=== PATIENT | male | born 1970 | race Caucasian/White ===

== ENCOUNTER 2020-06-18 10:55 | Emergency (ER) | payer OTHER, SELFPAY ==
[2020-06-18 11:10] VITALS: BP 160/108; PULSE 131; RESP 21; TEMP 37.3; O2SAT 96; BMI 29.8
--- NOTE | 2020-06-18 11:27 | HMH.EDUTC ---
[facility] [place] Clinical Impression: Encounter for laboratory testing for COVID-19 virus, Exposure to COVID-19 virus Disposition: Home, Self-Care Condition on Discharge: Good Instructions: DI for COVID-19 (Suspected or Confirmed ), Coronavirus Disease 2019, Preventing the Spread of Coronavirus Discharge Instructions Additional Instructions: *Monitor Temp, Over the counter Motrin or Tylenol as directed/as needed Tylenol every 4 hours and Motrin every 6 hours (as long as your family doctor has told you that you can take it) for fever or pain. and straight to ER if unable to lower temp less than 101.0 after medication given *Warm salt water gargles may help to soothe the throat *Warm fluids like tea with honey may help to soothe the throat *Sleep elevated *Humidifier/Vaporizer Follow up IMMEDIATELY for new or worsening symptoms or no Noticeable improvement over the next 48-72 hours. 911 for difficulty breathing or swallowing You were tested for today for COVID19 your test result should be back in the next 24-48 hours, you may call to the [facility] to see if your test results are back in the next 48 hours [phone] [facility] hours are 9am-9pm You was given a handout with instructions for Self Quarantine and Self isolation for while you wait on test results and what to do if they are positive If you are positive the Health Dept will be contacting you also Make sure to follow up with your Family Doctor for further treatment and evaluation of you Blood pressure and HR Referrals: PCP,No [Primary Care Provider] - As needed Forms: Work/School Release Time of Disposition: 11:32 Medical Decision Making - Eliazar Inquiry Pt receiving controlled substance: No Eliazar was queried for this patient: No Vital Signs: 06/18/20 11:10 Temperature 99.1 F Temperature Source Oral Pulse Rate [Right Brachial] 131 H Respiratory Rate 21 Blood Pressure [Right Arm] 160/108 H Blood Pressure Mean [Right Arm] 125 Blood Pressure Source [Right Arm] Automatic Cuff Blood Pressure Position [Right Arm] Sitting 02 Sat by Pulse Oximetry 96 Orders (Tests/Meds): ORDERS Category Date Time Status Covid-19 Nasal PCR Sendout P&C Stat Lab 06/18/20 10:57 Ordered Medical Decision Narrative: Discussed BP and elevated HR with patient States that he is a little nervous about the test and not sure if that may have caused it but declined transfer to the ED Patient recommended to follow up with the PCP if negative COVID for further treatment and evaluation [facility] [place] - General Stated complaint: covid test Time Seen by Provider: 06/18/20 11:27 Mode of Arrival: Ambulatory Source of Information: Patient Limitations: No Limitations Description of Symptoms (Recalled from Triage Doc. by RN): COVID TEST D/T EXPOSURE. C/O FEVER X 5 DAYS AND FATIGUE HEENT Symptoms (Recalled from RN notes): No Resp Symptoms (Recalled from RN notes): No Skin Symptoms (Recalled from RN notes): No MS Symptoms (Recalled from RN notes): No Functional Status (Recalled from RN notes): WNL - History of Present Illness Provider Complaint: Patient state that he wanted to get tested for COVID State that he has had fever on and off for 5 days, bodyaches and fatigue States that his and several co-workers recently tested positive and he was having symptoms too so he came in - Related Data Allergies Allergy/AdvReac Type Severity Reaction Status Date / Time No Known Allergies Allergy Verified 06/18/20 11:21 - Worker's Comp Is this a Worker's Comp case?: No [facility] History - Hepatitis A Screen Drug use history?: No High risk sexual behaviors?: No History of sexually transmitted infection?: No Currently employed?: No Childcare worker?: No Do you have indoor plumbing?: Yes Do you have electricity?: Yes Attestation statement:: This patient has been screened for Hepatitis A risk factors. I have reviewed the patient's past medical history: Yes - Social History Alcohol Intak
[2020-06-18 11:33] VITALS: BP 160/98; PULSE 110
[2020-06-18 11:43] VITALS: BP 160/98; PULSE 110; RESP 21; TEMP 37.3; O2SAT 96
[2020-06-19 08:52] LABS: Covid-19 Nasal PCR Sendout P&C POSITIVE
--- NOTE | 2020-06-19 09:34 | PC.NURSE ---
patient notified of positive covid results
== END 2020-06-18 11:45 | disposition home or self-care (01) ==
PROVIDERS: Emergency Provider Nurse Practitioner
DX: U07.1 COVID-19 (principal)
CPT/HCPCS: 99202; G0463; U0004

== ENCOUNTER 2020-06-22 13:51 | Inpatient (IN) | payer BC, SELFPAY ==
[2020-06-22] VITALS (9 sets, daily range): BP systolic 137–154; BP diastolic 82–100; PULSE 98–122; RESP 18–28; TEMP 36.6–37.2; O2SAT 83–95; BMI 29.8; BMI 29.7
--- NOTE | 2020-06-22 14:15 | XR_ITS ---
PROCEDURE: XR CHEST 2V CLINICAL HISTORY: SOA Positive Covid19 COMPARISON: No exams were available for comparison FINDINGS: The cardiomediastinal silhouette and pulmonary vascularity are within normal limits. There is diffuse bilateral alveolar opacification consistent with diffuse bilateral pneumonia in both upper and lower lobes. No obvious effusions. No acute bony abnormalities. IMPRESSION: Extensive bilateral pneumonia Dictated by: Isma Dela Cruz MD 06/22/2020 14:45 Isma Dela Cruz MD in [place] 06/22/2020 14:45
--- NOTE | 2020-06-22 14:21 | PC.NURSE ---
pt to rad
--- NOTE | 2020-06-22 14:26 | PC.NURSE ---
resp at bedside for ABG
--- NOTE | 2020-06-22 14:30 | HMH.EDGENADL ---
ED Disposition Clinical Impression: Acute respiratory failure due to COVID-19 Disposition: Admitted As Inpatient Condition on Discharge: Critical Referrals: PCP,No [Primary Care Provider] - - Critical Care Critical Care Time: Yes Attestation: On 06/22/20, the high probability of a clinically significant, sudden or life threatening deterioration of the following system(s) required my full and direct attention, intervention and personal management. The time I documented below is in addition to time spent performing reported procedures but includes the following listed in this critical care notation. Total Critical Care Time: 30 Vital system(s) involved:: Circulatory Failure, Metabolic Failure, Respiratory Failure My critical care processes included: Assessment & monitoring of V/S, Initial and Re-exams, Data Review/Interpretation, Coordinating Care, Medication Orders and management, Documentation Medical Decision Making - Medical Records Medical records reviewed: Yes: I reviewed the patient's medical records. - Eliazar Inquiry Pt receiving controlled substance: No Vital Signs: 06/22/20 13:52 Temperature 98.8 F Temperature Source Oral Pulse Rate [Right] 120 H Respiratory Rate 28 H Blood Pressure [Right Arm] 150/100 H Blood Pressure Mean [Right Arm] 116 Blood Pressure Source [Right Arm] Automatic Cuff Blood Pressure Position [Right Arm] Sitting 02 Sat by Pulse Oximetry 83 L Oxygen Delivery Method Room Air - Lab Data Lab Results 06/22/20 14:10: Specimen Source Right radial, O2 % 5l nc, ABG pH 7.43, ABG pCO2 31.9 L, ABG pO2 51.2 L, ABG HCO3 20.7 L, ABG Total CO2 21.7 L, ABG O2 Saturation 89 L, ABG Base Excess -3.6 L, Isma Test Acceptable 06/22/20 14:39: WBC 10.0, RBC 5.16, Hgb 15.8, Hct 45.9, MCV 89.0, MCH 30.7, MCHC 34.5, RDW 13.4, Plt Count 189, MPV 8.4, Neut % (Auto) 87.9 H, Lymph % (Auto) 10.0, [place] % (Auto) 1.9, Eos % (Auto) 0.0 L, Baso % (Auto) 0.3, Neut # (Auto) 8.8 H, Lymph # (Auto) 1.0, [place] # (Auto) 0.2, Eos # (Auto) 0.0, Baso # (Auto) 0.0 Result diagrams: 06/22/20 14:39 Orders (Tests/Meds): ED MEDICATIONS Generic Name Dose Route Start Last Admin Trade Name Angela PRN Reason Stop Dose Admin Sodium Chloride 1,000 mls @ 999 mls/hr 06/22/20 14:15 06/22/20 14:48 Sod Chlor 0.9% 1000ml Bag IV 06/22/20 15:15 999 mls/hr .Q1H1M SREEDHAR Administration Discontinued Medications Generic Name Dose Route Start Last Admin Trade Name Angela PRN Reason Stop Dose Admin Dexamethasone Sodium Phosphate 10 mg 06/22/20 14:09 06/22/20 14:53 Dexamethasone 4mg/Ml 1ml Vial IV 06/22/20 14:10 10 mg ONCE ONE Administration Iopamidol 70 ml 06/22/20 14:52 06/22/20 14:53 Iopamidol-370 (76%);100ml Bottle IV 06/22/20 14:53 70 ml ONCE ONE Administration Ketorolac Tromethamine 30 mg 06/22/20 14:09 Ketorolac 30mg/Ml Vial IM 06/22/20 14:10 ONCE ONE Sodium Chloride 50 ml 06/22/20 14:52 06/22/20 14:53 0.9 % Sodium Chloride 50 Ml Vial IV 06/22/20 14:53 50 ml ONCE ONE Administration Sodium Chloride 10 ml 06/22/20 14:52 06/22/20 14:53 Sodium Chloride 0.9% 10ml Syr (Rad Only) IV 06/22/20 14:53 10 ml ONCE ONE Administration ORDERS Category Date Time Status CTA Chest [CT angio chest] Stat Cat Scan 06/22/20 14:39 Taken Complete Blood Count Auto Diff Stat Lab 06/22/20 14:39 Results Comprehensive Metabolic Panel Stat Lab 06/22/20 14:39 Received Lactic Acid Stat Lab 06/22/20 14:39 Received PTT [Activated Partial Thrombo Time] Stat Lab 06/22/20 14:39 Ordered Prothrombin Time INR Stat Lab 06/22/20 14:39 Ordered Trop I [Troponin I] Stat Lab 06/22/20 14:39 Received Troponin I Q3H Lab 06/22/20 17:15 Ordered Troponin I Q3H Lab 06/22/20 20:15 Ordered Blood Culture Stat Micro 01/18/21 14:39 Received - Radiology Data #1 Image(s): Chest Image Reviewed: Yes I reviewed the patient's radiology results, Yes I reviewed the patient's radiology image, Ye
--- NOTE | 2020-06-22 14:35 | PC.NURSE ---
supervisor hospitality house notified of pt needing to go to covid unit quickly r/t pt will be need to be placed on vapotherm per ER r/t not maintaining sats on 4L per NC
--- NOTE | 2020-06-22 14:39 | CT_ITS ---
PROCEDURE: CT ANGIO CHEST CLINCIAL INDICATION: SOA Shortness of air, Covid19 pneumonia COMPARISON: No exams were available for comparison TECHNIQUE: IV Contrast: 70ML Isovue 370 Axial images obtained with sagittal and coronal reformats. All CT scans at the facility use one or more dose reduction, viz: automated exposure control, ma/kV adjustment per patient size (including targeted exams where dose is matched to indication, i.e. head), or iterative reconstruction technique. FINDINGS: HEART AND MEDIASTINAL STRUCTURES: No evidence of pulmonary embolus, aortic aneurysm, or aortic dissection.. There are enlarged mediastinal and bilateral hilar lymph nodes. LUNGS AND PLEURAL SPACES: Multifocal diffuse bilateral ground-glass infiltrates noted with some areas of consolidation in the lower lobes. These findings are consistent with Covid19 pneumonia. Nodular lesions may be obscured. No effusions. BONY STRUCTURES: Mild degenerative changes thoracic spine UPPER ABDOMEN: Fatty liver ADDITIONAL FINDINGS: No other significant abnormalities. IMPRESSION: 1. No evidence of pulmonary embolus, aortic aneurysm, or aortic dissection. 2. Multifocal diffuse areas of ground-glass attenuation in both upper and lower lobes with consolidation consistent with Covid19 pneumonia Dictated by: Isma Dela Cruz MD 06/22/2020 15:19 Isma Dela Cruz MD in [place] 06/22/2020 15:19
--- NOTE | 2020-06-22 14:40 | PC.NURSE ---
waiting parks recreation coordinator back from Dr. Carson
--- NOTE | 2020-06-22 14:47 | PC.NURSE ---
Pt to radiology. Pt increased to 5lpm per NC. PT will be going up to the unit quickly due to sats not being able to get above 90%. Plan is to place pt on vapotherm. Pt and updated on POC. Agreeable at this time
[2020-06-22 14:50] LABS: ABG Base Excess -3.6 mmol/L (-2.4-2.3); ABG HCO3 20.7 mmhg (22.0-26.0); ABG Oxygen Saturation 89 % (90-100); ABG PCO2 31.9 mmhg (35.0-45.0); ABG PH 7.43 mmol/L (7.35-7.45); ABG PO2 51.2 mmhg (80-100); ABG TCO2 21.7 mmhg (23-27); Oxygen 5l nc %
[2020-06-22 14:51] LABS: Allen's Test Acceptable; Source Right Radial
[2020-06-22 14:52] LABS: Basophils % 0.3 % (0.1-2.0); Hematocrit 45.9 % (42.0-52.0); Hemoglobin 15.8 g/dL (14.1-18.0); Mean Corpuscular HGB Conc 34.5 g/dL (31.8-35.4); Mean Corpuscular Hemoglobin 30.7 pg (27.0-31.2); Mean Platelet Volume 8.4 fl (7.4-10.4); Monocytes # 0.2 K/mm3 (0.1-1.0); Monocytes % 1.9 % (1.7-9.3); Neutrophils # 8.8 K/mm3 (1.8-7.8); Neutrophils % 87.9 % (37.0-80.0); Platelet Count 189 K/mm3 (142-424); Red Blood Count 5.16 M/mm3 (4.60-6.20); Red Cell Distribution Width 13.4 % (11.5-17.5)
[2020-06-22 14:55] LABS: MANUAL DIFFERENTIAL MANUAL DIFFERENTIAL (MANUAL DIFF)
--- NOTE | 2020-06-22 14:56 | PC.NURSE ---
Dr Coker speaking with Dr Carson
[2020-06-22 14:58] LABS: Chloride 103 mmol/L (98-107); Sodium 139 mmol/L (136-145)
[2020-06-22 14:59] LABS: Potassium 4.6 mmoL/L (3.5-5.1)
[2020-06-22 15:01] LABS: Alanine Aminotransferase 140 U/L (12-78); Alkaline Phosphatase 101 U/L (38-126); Anion Gap 15.6 mEq/L (5-15); Aspartate Amino Transferase 145 U/L (17-59); Bilirubin,Total 0.5 mg/dl (0.2-1.3); Blood Urea Nitrogen 19 mg/dl (9-20); Carbon Dioxide 25 mmol/L (22.0-30.0); Creatinine Clearance Estimated 119 mL/min (50-200); Estimated Glomerular Filt Rate 59 ml/min (>60); GFR (African American) 72 ML/MIN (>60); Lactic Acid 1.2 mmol/L (0.7-2.1)
[2020-06-22 15:02] LABS: Albumin Level 4.5 g/dl (3.5-5.0); Calcium 9.6 mg/dl (8.4-10.2); Globulin 4.5 g/dL (1.3-3.2); Glucose 179 mg/dl (74-100)
[2020-06-22 15:04] LABS: Lymphocytes % 11 % (10-50); Monocytes % 6 % (2-9); Neutrophils % 82 % (42-76); Platelet Estimate Normal; RBC Morphology Normal; Total Cells Counted 100
[2020-06-22 15:17] LABS: Troponin I < 0.01 ng/ml (0.00-0.034)
--- NOTE | 2020-06-22 15:39 | PC.NURSE ---
PT sats remained in 80's/90's while in ED. V/S on and off due to pt going back and forth to rad and getting labs drawn. Pt remained on 5lpm NC. Decision was made to get pt to the unit so he oculd be placed on vapotherm. Pt returned from CTA and was taken to the unit per TRAM Dennison and report was given to TRAM Delgado
--- NOTE | 2020-06-22 16:03 | HMH.PHAVTE ---
[facility] Pharmacy VTE Monitoring - Patient Demographics Admission date: 06/22/20 Report Date: 06/22/20 Time: 16:03 Allergies/Adverse Reactions: Patient Allergies No Known Allergies Allergy (Verified 06/22/20 14:20) Height: 2.01 m Weight: 120.202 kg Patient Problems: Current Active Problems Acute respiratory failure due to COVID-19 (Acute) - VTE Risk Labs: VTE Related Lab Results Hgb 15.8 g/dL (14.1-18.0) 06/22/20 14:39 Hct 45.9 % (42.0-52.0) 06/22/20 14:39 Plt Count 189 K/mm3 (142-424) 06/22/20 14:39 BUN 19 mg/dl (9-20) 06/22/20 14:39 Creatinine 1.30 mg/dl (0.66-1.25) H 06/22/20 14:39 Estimated Creat Clear 119 mL/min (50-200) 06/22/20 14:39 Clinical Trial Participant: No - Prophylaxis VTE Prophylaxis Ordered?: Yes Types of VTE Prophylaxis: TEDS Knee High, Pharmacological Pharmacologic Type: Enoxaparin
[2020-06-22 16:21] LABS: Activated Partial Thrombo Time 31.9 seconds (23.6-34.0); INR 1.07 (0.9-1.1); Prothrombin Time 11.8 seconds (9.4-11.8)
[2020-06-22 17:52] LABS: Troponin I < 0.01 ng/ml (0.00-0.034)
--- NOTE | 2020-06-22 18:40 | PC.NURSE ---
Patient is resting comfortably in bed. Admitted today at 1530 from ER for covid pneumonia requiring high flow oxygen. Patient is neurologically alert and oriented x 5. Pupils are equal and reactive. Cardiac: Patient has been sinus tach since admission with rates in excess of 110 bmp. No edema noted. Blood pressure has been within normal ranges. Afebrile. Current temperature is 98.8 Pulmonary: Patient given an incentive spirometer and educated on its usage. Has been noted using the IS intermittently without prompting. Remains on vapotherm at 40l, 60%. Sputum sample ordered, patient has a sample cup but has been unable to produce a sample. GI: Patient has active bowel sounds. No n/v/d. Diminished appetite. Patient ate roughly 25% of his dinner and states he has been dealing with a lack of appetite for a few days. : Patient voids per urinal. Has had 600 cc of clear yellow urine since admission. Skin: Clean dry intact. No issues or concerns. Patient was educated on proning himself when in bed. Patient has been laying on side and stomach intermittently. Will continue to monitor.
[2020-06-22 21:27] LABS: Troponin I < 0.01 ng/ml (0.00-0.034)
--- NOTE | 2020-06-22 22:01 | PC.NURSE ---
He continues in contact and airborne precautions. His lung sounds are diminished. He states he does not cough often. He is aware of need for sputum and cup is at the bedside. He is voiding per urinal. Urine is yellow,clear. Large amounts of urine (600mL) at a time. He is A&Ox4. Reports his last BM was on 06/21/20. He turns himself independently in bed and lays prone occasionally. He reports a poor appetite.
[2020-06-23] VITALS (13 sets, daily range): BP systolic 148–160; BP diastolic 84–97; PULSE 80–110; RESP 16–23; TEMP 36.7–36.9; O2SAT 90–96; BMI 33.7
[2020-06-23 06:05] LABS: Alanine Aminotransferase 116 U/L (12-78); Albumin/Globulin Ratio 1.1 (1.1-1.8); Alkaline Phosphatase 93 U/L (38-126); Anion Gap 16.8 mEq/L (5-15); Aspartate Amino Transferase 116 U/L (17-59); Bilirubin,Total 0.4 mg/dl (0.2-1.3); Blood Urea Nitrogen 17 mg/dl (9-20); Calcium 9.3 mg/dl (8.4-10.2); Carbon Dioxide 23 mmol/L (22.0-30.0); Chloride 104 mmol/L (98-107); Creatinine Clearance Estimated 196 mL/min (50-200); Estimated Glomerular Filt Rate 90 ml/min (>60); GFR (African American) 109 ML/MIN (>60); Globulin 3.7 g/dL (1.3-3.2); Glucose 139 mg/dl (74-100); Potassium 4.8 mmoL/L (3.5-5.1); Sodium 139 mmol/L (136-145); Total Protein,Serum 7.7 g/dl (6.3-8.2)
[2020-06-23 06:24] LABS: Basophils % 0.2 % (0.1-2.0); Lymphocytes # 0.7 K/mm3 (0.7-4.5); Lymphocytes % 10.1 % (10-50); Mean Corpuscular HGB Conc 34.8 g/dL (31.8-35.4); Mean Corpuscular Hemoglobin 31.3 pg (27.0-31.2); Mean Platelet Volume 8.6 fl (7.4-10.4); Monocytes # 0.2 K/mm3 (0.1-1.0); Monocytes % 3.4 % (1.7-9.3); Neutrophils # 5.9 K/mm3 (1.8-7.8); Neutrophils % 86.4 % (37.0-80.0); Platelet Count 201 K/mm3 (142-424); Red Blood Count 4.44 M/mm3 (4.60-6.20); Red Cell Distribution Width 13.4 % (11.5-17.5); White Blood Count 6.8 K/mm3 (4.8-10.8)
[2020-06-23 07:02] LABS: MANUAL DIFFERENTIAL MANUAL DIFFERENTIAL (MANUAL DIFF)
[2020-06-23 08:48] LABS: Lymphocytes % 9 % (10-50); Monocytes % 2 % (2-9); Neutrophils % 88 % (42-76); Platelet Estimate Normal; RBC Morphology Normal; Total Cells Counted 100
[2020-06-23 09:42] LABS: Hemoglobin 13.9 g/dL (14.1-18.0)
--- NOTE | 2020-06-23 12:00 | HMH.HP ---
*Admission Date: 06/22/20 *Chief complaint: Shortness of Breath *History of present illness: 49 YOM states he started feeling bad last Monday and with a fever, SOA, cough, weakness. He tested positive for covid in the [facility] on 06/18 and has gotten porgressively worse in the past couple of days. This is a 49-year-old male presented to the emergency department with difficulty breathing. Patient was recently diagnosed with coronavirus a few days ago. Patient denies any medical problems. He states that he has been very rundown. He has had some cough, however nonproductive in nature. He has been taking Tylenol and scheduled, however he still endorses some fevers. The patient woke up today and had some difficulties breathing. Specially with exertion, he felt like he could not catch his breath. He denies any associated chest pain. No hemoptysis. Denies any headache or change in vision. No focal weakness. No abdominal pain or vomiting, no diarrhea (Per Dr. Coker). White blood cell count 10, H&H stable, CBC unremarkable. AST 145, ALT 140 06/22/2020 chest x-ray: FINDINGS: The cardiomediastinal silhouette and pulmonary vascularity are within normal limits. There is diffuse bilateral alveolar opacification consistent with diffuse bilateral pneumonia in both upper and lower lobes. No obvious effusions. No acute bony abnormalities. IMPRESSION: Extensive bilateral pneumonia Dictated by: Jose De Jesus, 06/22/20 Chest CTA: FINDINGS: HEART AND MEDIASTINAL STRUCTURES: No evidence of pulmonary embolus, aortic aneurysm, or aortic dissection.. There are enlarged mediastinal and bilateral hilar lymph nodes. LUNGS AND PLEURAL SPACES: Multifocal diffuse bilateral ground-glass infiltrates noted with some areas of consolidation in the lower lobes. These findings are consistent with Covid19 pneumonia. Nodular lesions may be obscured. No effusions. BONY STRUCTURES: Mild degenerative changes thoracic spine UPPER ABDOMEN: Fatty liver ADDITIONAL FINDINGS: No other significant abnormalities. IMPRESSION: 1. No evidence of pulmonary embolus, aortic aneurysm, or aortic dissection. 2. Multifocal diffuse areas of ground-glass attenuation in both upper and lower lobes with consolidation consistent with Covid19 pneumonia Dictated by: Jose De Jesus, Azithromycin, ceftriaxone, remdesivir, and dexamethasone IV all started in emergency department. Patient resting in bed with eyes closed no apparent distress noted. Awakens to verbal stimuli. Patient reports she is feeling better today than yesterday but still short of breath. Vapotherm at 40 L oxygen saturations 91%. Patient reports he has been up walking in his room and sitting in chair for all meals. [facility] History I have reviewed the patient's past medical history: Yes Medical History: Denies:: Diabetes Mellitus Type 1, Diabetes Mellitus Type 2 *Have you ever received a pneumonia vaccine?: No *Have you received a flu vaccine this season?: No - *Social History Last grade of school completed: Advanced degree Smoking Status: Never smoker Alcohol Intake: never *Occupational Status:: employed Housing: house Household Members: spouse *Travel in the last 8 weeks: None Family Hx:: No significant family history Review of Systems - Review of Systems Review of systems:: pertinent systems reviewed and negative unless documented below - Constitutional Denies anorexia, Denies body ache(s) - Eyes Denies blind spots, Denies double vision - ENT Denies abnormal hearing, Denies difficulty swallowing - *Cardiovascular Reports shortness of breath, Denies chest pain, Denies leg swelling - *Respiratory Reports cough, Reports shortness of breath, Denies change in phlegm color - *Gastrointestinal Denies abdominal pain, Denies bloating - *Genitourinary Denies difficulty urinating, Denies decreased urination - *Musculoskeletal Denies abnormal walking, Denies muscle cramps - Integumentary/Breasts
--- NOTE | 2020-06-23 15:30 | HMH.PULMCON ---
*Admission Date: 06/22/20 *Reason for consult:: Acute hypoxic respiratory failure, COVID-19 pneumonia *History of present illness: Mr. Messina is a 49-year-old male never smoker, no prior respiratory complaint presented to the hospital with worsening fatigue and respiratory failure needing high flow nasal cannula oxygen supplementation and pulmonary was called for further management. Patient previously complained productive cough however he denies any productive phlegm at this point. No sob worsens with exertion and relieved with taking rest. Patient admits that his symptom significantly improved after coming to the hospital. [facility] History Medical History: Denies:: Diabetes Mellitus Type 1, Diabetes Mellitus Type 2 *Have you ever received a pneumonia vaccine?: No *Have you received a flu vaccine this season?: No - *Social History Last grade of school completed: Advanced degree Smoking Status: Never smoker Alcohol Intake: never Alcohol Intake Frequency:: other Substance Use Type: unknown *Occupational Status:: employed Housing: house Household Members: spouse *Travel in the last 8 weeks: None Family Hx:: Other ROS - Cons Reports body ache(s), Reports chills - Card Reports shortness of breath, Reports shortness of breath with activity - Resp Respiratory: Reports chest congestion, Reports cough, Reports non-productive cough, Reports dyspnea on exertion, Denies coughing up blood, Denies pain on inspiration, Denies cough with sputum production Meds Home Medications Medication Instructions Recorded Confirmed Type No Known Home Medications 06/22/20 06/22/20 History Allergies Allergy/AdvReac Type Severity Reaction Status Date / Time No Known Allergies Allergy Verified 06/22/20 18:33 Exam - Constitutional Constitutional:: no acute distress, comfortable - HENMT Exam HENMT: atraumatic - Eye Exam Eyes:: normal appearance both eyes and related structures - Neck Exam Neck:: normal visual inspection - Respiratory Exam Comments: Patient high flow nasal cannula 35 L 95%. Does not appear to be in respiratory distress. Bilateral coarse breath sounds. - Cardiovascular Exam Cardiac:: S1, S2 - GI Exam GI:: soft - Skin Exam Skin: warm, no rash - Neurological Exam Neurological: alert, awake, normal cognition - Extremities Exam Extremities: no cyanosis, no clubbing, no edema - Psychiatric Exam Psychiatric: anxious Internal Medicine - CN: Reslt - Labs CBC & Chem 7: 06/23/20 04:50 06/23/20 04:50 Labs: Short CBC 06/23/20 Range/Units 04:50 WBC 6.8 D (4.8-10.8) K/mm3 Hgb 13.9 L D (14.1-18.0) g/dL Hct 40.0 L (42.0-52.0) % Plt Count 201 (142-424) K/mm3 BMP 06/23/20 04:50 Sodium 139 Potassium 4.8 Chloride 104 Carbon Dioxide 23 BUN 17 Creatinine 0.90 D Glucose 139 H D Calcium 9.3 Cardiac Enzymes 06/22/20 06/22/20 Range/Units 17:10 20:55 Troponin I < 0.01 < 0.01 (0.00-0.034) ng/ml Liver Function 06/23/20 Range/Units 04:50 Total Bilirubin 0.4 (0.2-1.3) mg/dl AST 116 H (17-59) U/L ALT 116 H (12-78) U/L Alkaline Phosphatase 93 (38-126) U/L Albumin 4.0 D (3.5-5.0) g/dl - ABG Interpretation ABG results: 06/22/20 14:10 ABG pH 7.43 ABG pCO2 31.9 L ABG pO2 51.2 L ABG HCO3 20.7 L ABG Total CO2 21.7 L ABG O2 Saturation 89 L ABG Base Excess -3.6 L Assessment and Plan (1) Acute respiratory failure due to COVID-19 Status: Acute Category: Medical Code(s): U07.1 - COVID-19; J96.00 - Acute respiratory failure, unspecified whether with hypoxia or hypercapnia - Assessment and plan all Dx Assessment and Plan for all problems:: #Acute hypoxic respiratory failure: #COVID-19 pneumonia: 49-year-old no prior respiratory complaints presented with worsening respiratory failure and found to be COVID-19 positive and was admitted for further management. Patient has a CTA performed that wa
--- NOTE | 2020-06-23 19:29 | PC.NURSE ---
PATIENT IS A&O X4, LUNGS ARE DIMINISHED, PULSES EQUAL. PATIENT SLEPT ON STOMACH DURING NAPS. PATIENT WAS ANXIOUS AND HAD A FEELING OF DOOM. THIS RN ENCOURAGED PATIENT AND ANSWERED ALL QUESTIONS, PER PATIENT, HE FEELS A LOT BETTER. PATIENT ATE ALL MEALS AND TOLERATED WELL. PATIENT DID SOME ACTIVITY OF GETTING UP TO CHAIR, SITTING ON SIDE OF BED AND TOLERATED WELL. NO NEW CONCERNS AT THIS TIME.
[2020-06-24] VITALS (15 sets, daily range): BP systolic 141–162; BP diastolic 81–93; PULSE 65–110; RESP 18–26; TEMP 36.4–37.2; O2SAT 89–98; BMI 33.6
--- NOTE | 2020-06-24 06:56 | PC.NURSE ---
PT IS RESTING IN BED. PT STATES HE FEELS MUCH BETTER. HAS BEEN USING IS FREQUENTLY WHILE AWAKE. O2 SATURATION HAS MAINTAINED 92-98% ON VAPOTHERM AT 40L AND 75% FIO2. PT SLEPT IN PRONE POSITION T/O THE NIGHT. LUNG SOUNDS DIMINISHED WITH FINE CRACKLES IN THE RT BASE. ABDOMEN SOFT NON TENDER WITH ACTIVE BOWEL SOUNDS. PT HAD A LARGE BM EARLIER IN THE SHIFT. WILL CONTINUE TO MONITOR.
[2020-06-24 07:52] LABS: Basophils % 0.2 % (0.1-2.0); Hematocrit 39.4 % (42.0-52.0); Hemoglobin 13.8 g/dL (14.1-18.0); Lymphocytes # 1.3 K/mm3 (0.7-4.5); Lymphocytes % 13.5 % (10-50); Mean Corpuscular HGB Conc 34.9 g/dL (31.8-35.4); Mean Corpuscular Hemoglobin 31.5 pg (27.0-31.2); Mean Corpuscular Volume 90.3 fl (80-94); Mean Platelet Volume 8.9 fl (7.4-10.4); Monocytes # 0.4 K/mm3 (0.1-1.0); Monocytes % 4.5 % (1.7-9.3); Neutrophils # 7.6 K/mm3 (1.8-7.8); Neutrophils % 81.8 % (37.0-80.0); Platelet Count 253 K/mm3 (142-424); Red Blood Count 4.36 M/mm3 (4.60-6.20); Red Cell Distribution Width 13.8 % (11.5-17.5); White Blood Count 9.3 K/mm3 (4.8-10.8)
[2020-06-24 07:54] LABS: Alanine Aminotransferase 101 U/L (12-78); Albumin Level 3.8 g/dl (3.5-5.0); Albumin/Globulin Ratio 1.1 (1.1-1.8); Alkaline Phosphatase 79 U/L (38-126); Anion Gap 14.7 mEq/L (5-15); Aspartate Amino Transferase 97 U/L (17-59); Bilirubin,Total 0.4 mg/dl (0.2-1.3); Blood Urea Nitrogen 21 mg/dl (9-20); Calcium 9.2 mg/dl (8.4-10.2); Carbon Dioxide 25 mmol/L (22.0-30.0); Chloride 107 mmol/L (98-107); Creatinine Clearance Estimated 176 mL/min (50-200); Estimated Glomerular Filt Rate 80 ml/min (>60); GFR (African American) 97 ML/MIN (>60); Globulin 3.6 g/dL (1.3-3.2); Glucose 115 mg/dl (74-100); Potassium 4.7 mmoL/L (3.5-5.1); Sodium 142 mmol/L (136-145); Total Protein,Serum 7.4 g/dl (6.3-8.2)
--- NOTE | 2020-06-24 09:42 | P.PN_ITS ---
Internal Medicine - PN: Subj *Date: 06/24/20 *Time: 08:42 Interval history: pt siting up in bed states he feels some better. Exam Vital signs and Labs for Last 24 Hours: Temp Pulse Resp BP Pulse Ox 98.3 F 73 19 145/86 H 89 L 06/24/20 08:00 06/24/20 08:00 06/24/20 08:00 06/24/20 08:00 06/24/20 08:13 Laboratory Results - last 24 hr 06/23/20 04:50: Hgb 13.9 L D 06/24/20 05:55: Sodium 142, Potassium 4.7, Chloride 107, Carbon Dioxide 25, Anion Gap 14.7, BUN 21 H, Creatinine 1.00, Estimated Creat Clear 176, Estimated GFR 80, Est GFR ( Amer) 97, Glucose 115 H, Calcium 9.2, Total Bilirubin 0.4, AST 97 H, ALT 101 H, Alkaline Phosphatase 79, Total Protein 7.4, Albumin 3.8, Globulin 3.6 H, Albumin/Globulin Ratio 1.1 06/24/20 05:55: WBC 9.3 D, RBC 4.36 L, Hgb 13.8 L, Hct 39.4 L, MCV 90.3, MCH 31.5 H, MCHC 34.9, RDW 13.8, Plt Count 253 D, MPV 8.9, Neut % (Auto) 81.8 H, Lymph % (Auto) 13.5, [place] % (Auto) 4.5, Eos % (Auto) 0.0 L, Baso % (Auto) 0.2, Neut # (Auto) 7.6, Lymph # (Auto) 1.3, [place] # (Auto) 0.4, Eos # (Auto) 0.0, Baso # (Auto) 0.0 I & O for Last 24 hours: Intake & Output 06/21/20 06/22/20 06/23/20 06/24/20 11:59 11:59 11:59 11:59 Intake Total 2633 / 2633 2380 / 2380 Output Total 2870 / 2870 3350 / 3350 Balance -237 / -237 -970 / -970 Weight 300 lb 8 oz - Constitutional no acute distress - *Routine HEENT Exam Head: Present: normocephalic Eye: Present: PERRL ENT: Present: mucous membranes moist - *Routine Neck Exam Present: supple. Absent: lymphadenopathy - *Routine Respiratory Exam Present: rhonchi, wheezes - *Routine Cardiovascular Exam Present: RRR - *Routine Abdominal Exam Present: soft, normoactive bowel sounds. Absent: tenderness - *Routine Extremities Exam Present: normal capillary refill. Absent: cyanosis, clubbing, edema - *Routine Skin Exam Present: warm. Absent: rash - *Routine Neurological Exam Present: alert, oriented X3 - Routine Psychiatric Exam Present: normal affect Assessment and Plan (1) Acute respiratory failure due to COVID-19 Status: Acute Category: Medical Code(s): U07.1 - COVID-19; J96.00 - Acute respiratory failure, unspecified whether with hypoxia or hypercapnia (2) Class 1 obesity with body mass index (BMI) of 33.0 to 33.9 in adult Status: Acute Category: Medical Code(s): E66.9 - Obesity, unspecified; Z68.33 - Body mass index [BMI] 33.0-33.9, adult - Assessment and plan all Dx Assessment and Plan for all problems:: rounded with dr tubbs all orders per dr arley bynum
--- NOTE | 2020-06-24 16:41 | HMH.PULMPN ---
Internal Medicine - PN: Subj *Date: 06/24/20 *Time: 16:41 Interval history: No acute respiratory events overnight, patient respiratory status remained stable on high flow nasal cannula at 75% FiO2. Exam - Constitutional Constitutional:: no acute distress, comfortable - Neck Exam Neck:: normal visual inspection - Respiratory Exam Respiratory:: able to speak in complete sentences, crackles - Cardiovascular Exam Cardiac:: S1, S2 - Neurological Exam Neurological: alert, awake, normal cognition - Extremities Exam Extremities: no cyanosis, no clubbing, no edema - Psychiatric Exam Psychiatric: normal affect Assessment and Plan (1) Acute respiratory failure due to COVID-19 Status: Acute Category: Medical Code(s): U07.1 - COVID-19; J96.00 - Acute respiratory failure, unspecified whether with hypoxia or hypercapnia (2) Class 1 obesity with body mass index (BMI) of 33.0 to 33.9 in adult Status: Acute Category: Medical Code(s): E66.9 - Obesity, unspecified; Z68.33 - Body mass index [BMI] 33.0-33.9, adult - Assessment and plan all Dx Assessment and Plan for all problems:: #Acute hypoxic respiratory failure: #COVID-19 pneumonia: 49-year-old no prior respiratory complaints presented with worsening respiratory failure and found to be COVID-19 positive and was admitted for further management. Patient has a CTA performed that was negative for PE however showed bilateral groundglass opacities. Afebrile, no evidence of leukocytosis. Creatinine stable at 0.90. ABG from admission reviewed, showed hypoxic respiratory failure. Patient on admission was initiated on ceftriaxone azithromycin along with remdesivir and dexamethasone. Interval update: Patient respiratory status remained stable since yesterday needing high flow nasal cannula at 75%. Patient saturating 88 to 92% but however desaturating with exertion. Able to talk in complete sentences. Appears to be in mild respiratory distress. Auscultation bilateral coarse breath sounds unchanged from yesterday. Patient does not appear to be volume overloaded. Plan: - Continue oxygen supplementation via high flow nasal cannula with saturation goal of 88% to 92%, wean oxygen as tolerated - Continue ceftriaxone azithromycin for possible community-acquired pneumonia - Continue remdesivir and dexamethasone - DuoNebs every 6 hours as needed Total critical care time spent on this patient is 30 minutes managing acute hypoxic respiratory failure needing high flow nasal cannula. This time spent include reviewing test results including interpreting chest x-rays, labs and arterial blood gas formulating plan of care, discussing the plan of care with the team and the nursing staff. #Thank you for involving pulmonary in this patient care. We will continue to follow.
--- NOTE | 2020-06-24 19:24 | PC.NURSE ---
No acute changes noted this shift, patient has been up to chair this shift, using IS, has ate 100% of meals this shift, vapotherm settings decreased to 40L/70%, patient tolerated well, no s/s of distress noted, vss, will continue to monitor.
[2020-06-25] VITALS (12 sets, daily range): BP systolic 135–151; BP diastolic 83–96; PULSE 65–114; RESP 18–20; TEMP 36.6–36.8; O2SAT 90–99; BMI 33.3
--- NOTE | 2020-06-25 01:17 | PC.NURSE ---
PT IS RESTING IN BED IN PRONE POSITION. PT HAS BEE USING HIS INCENTIVE SPIROMETER FREQUENTLY WHILE AWAKE. O2 SATURATION HAS MAINTAINED 95-99% ON VAPOTHERM 40 L AND 65% FIO2. PT TOLERATED GIVING HIMSELF A BATH AT THE BEGINNING OF THE SHIFT. LUNG SOUNDS DIMINISHED. ABDOMEN SOFT/NON TENDER WITH ACTIVE BOWEL SOUNDS. VSS. WILL CONTINUE TO MONITOR
[2020-06-25 07:06] LABS: Basophils % 0.1 % (0.1-2.0); Hematocrit 38.3 % (42.0-52.0); Hemoglobin 13.4 g/dL (14.1-18.0); Lymphocytes # 1.2 K/mm3 (0.7-4.5); Lymphocytes % 14.2 % (10-50); Mean Corpuscular Hemoglobin 31.8 pg (27.0-31.2); Mean Corpuscular Volume 90.9 fl (80-94); Monocytes # 0.5 K/mm3 (0.1-1.0); Monocytes % 5.6 % (1.7-9.3); Neutrophils # 6.5 K/mm3 (1.8-7.8); Neutrophils % 80.2 % (37.0-80.0); Platelet Count 292 K/mm3 (142-424); Red Blood Count 4.22 M/mm3 (4.60-6.20); Red Cell Distribution Width 13.2 % (11.5-17.5); White Blood Count 8.1 K/mm3 (4.8-10.8)
[2020-06-25 07:14] LABS: Alanine Aminotransferase 223 U/L (12-78); Albumin Level 3.9 g/dl (3.5-5.0); Albumin/Globulin Ratio 1.1 (1.1-1.8); Alkaline Phosphatase 97 U/L (38-126); Anion Gap 13.8 mEq/L (5-15); Aspartate Amino Transferase 176 U/L (17-59); Bilirubin,Total 0.6 mg/dl (0.2-1.3); Blood Urea Nitrogen 20 mg/dl (9-20); Calcium 9.2 mg/dl (8.4-10.2); Carbon Dioxide 27 mmol/L (22.0-30.0); Chloride 106 mmol/L (98-107); Creatinine Clearance Estimated 193 mL/min (50-200); Estimated Glomerular Filt Rate 90 ml/min (>60); GFR (African American) 109 ML/MIN (>60); Globulin 3.4 g/dL (1.3-3.2); Glucose 125 mg/dl (74-100); Potassium 4.8 mmoL/L (3.5-5.1); Sodium 142 mmol/L (136-145); Total Protein,Serum 7.3 g/dl (6.3-8.2)
--- NOTE | 2020-06-25 09:09 | HMH.PULMPN ---
Internal Medicine - PN: Subj *Date: 06/25/20 *Time: 11:19 Interval history: Patient respiratory status improved from yesterday, wean to nasal cannula this morning, however saturations between 82 to 90% Exam - Constitutional Constitutional:: no acute distress, cooperative - HENMT Exam HENMT: normocephalic, atraumatic - Neck Exam Neck:: normal visual inspection - Respiratory Exam Respiratory:: able to speak in complete sentences, no respiratory distress, crackles - Cardiovascular Exam Cardiac:: S1, S2 - Neurological Exam Neurological: alert, awake, normal cognition - Extremities Exam Extremities: no cyanosis, no clubbing, edema - Psychiatric Exam Psychiatric: normal affect Assessment and Plan (1) Acute respiratory failure due to COVID-19 Status: Acute Category: Medical Code(s): U07.1 - COVID-19; J96.00 - Acute respiratory failure, unspecified whether with hypoxia or hypercapnia (2) Class 1 obesity with body mass index (BMI) of 33.0 to 33.9 in adult Status: Acute Category: Medical Code(s): E66.9 - Obesity, unspecified; Z68.33 - Body mass index [BMI] 33.0-33.9, adult - Assessment and plan all Dx Assessment and Plan for all problems:: #Acute hypoxic respiratory failure: #COVID-19 pneumonia: 49-year-old no prior respiratory complaints presented with worsening respiratory failure and found to be COVID-19 positive and was admitted for further management. Patient has a CTA performed that was negative for PE however showed bilateral groundglass opacities. ABG from admission reviewed, showed hypoxic respiratory failure. Patient on admission was initiated on ceftriaxone azithromycin along with remdesivir and dexamethasone. Interval update: Patient respiratory status improved from yesterday. Oxygen supplementation weaned to 6 L nasal cannula however patient saturations between 82 to 90%. We will diuresis patient today and follow his oxygen status with a saturation goal of 88 to 92%. Blood cultures no growth 48 hours. Sputum staining rare gram-positive cocci in pairs and chains, will continue to monitor Afebrile. Hemodynamically stable. Renal function stable. Plan: - Lasix 40 IV once - Continue oxygen supplementation with saturation goal of 88% to 92%, wean oxygen as tolerated - Continue ceftriaxone azithromycin for possible community-acquired pneumonia - Continue remdesivir and dexamethasone - DuoNebs every 6 hours as needed #Thank you for involving pulmonary in this patient care. We will continue to follow.
--- NOTE | 2020-06-25 12:35 | XR_ITS ---
PROCEDURE: XR CHEST PORTABLE CLINICAL HISTORY: covid pneumonia Shortness of air COMPARISON: CR XR CHEST 2V from 06/22/[address] ANGIO CHEST from 06/22/2020 FINDINGS: The cardiomediastinal silhouette and pulmonary vascularity are within normal limits. There is diffuse bilateral pneumonia which is worse in the lower lobes. No evidence of pneumothorax. The pneumonia appears slightly improved in the right upper lobe. No acute bony abnormalities. IMPRESSION: Diffuse bilateral pneumonia with mixed response worsening in the lower lobes and slight improvement in the right upper lobe Dictated by: Isma Dela Cruz MD 06/25/2020 13:16 Isma Dela Cruz MD in [facility] 06/25/2020 13:16
--- NOTE | 2020-06-25 12:40 | P.PN_ITS ---
Internal Medicine - PN: Subj *Date: 06/25/20 *Time: 08:30 Interval history: pt sitting up in chair states hes been up moving around feels better today Exam Vital signs and Labs for Last 24 Hours: Temp Pulse Resp BP Pulse Ox 98.3 F 112 H 20 151/95 H 91 L 06/25/20 12:00 06/25/20 12:00 06/25/20 12:00 06/25/20 12:00 06/25/20 12:00 Laboratory Results - last 24 hr 06/25/20 06:00: Sodium 142, Potassium 4.8, Chloride 106, Carbon Dioxide 27, Anion Gap 13.8, BUN 20, Creatinine 0.90, Estimated Creat Clear 193, Estimated GFR 90, Est GFR ( Amer) 109, Glucose 125 H, Calcium 9.2, Total Bilirubin 0.6, AST 176 H D, ALT 223 H D, Alkaline Phosphatase 97, Total Protein 7.3, Albumin 3.9, Globulin 3.4 H, Albumin/Globulin Ratio 1.1 06/25/20 06:00: WBC 8.1, RBC 4.22 L, Hgb 13.4 L, Hct 38.3 L, MCV 90.9, MCH 31.8 H, MCHC 35.0, RDW 13.2, Plt Count 292, MPV 8.0, Neut % (Auto) 80.2 H, Lymph % (Auto) 14.2, [place] % (Auto) 5.6, Eos % (Auto) 0.0 L, Baso % (Auto) 0.1, Neut # (Auto) 6.5, Lymph # (Auto) 1.2, [place] # (Auto) 0.5, Eos # (Auto) 0.0, Baso # (Auto) 0.0 I & O for Last 24 hours: Intake & Output 06/23/20 06/24/20 06/25/20 06/26/20 11:59 11:59 11:59 11:59 Intake Total 2633 / 2633 2620 / 2620 2622 / 2982 360 / 360 Output Total 2870 / 2870 3350 / 3350 4300 / 4300 750 / 750 Balance -237 / -237 -730 / -730 -1678 / -1318 -390 / -390 Weight 300 lb 8 oz 297 lb Microbiology Reports for the Last 24 Hours: Microbiology 06/24/20 08:43 Sputum - Expectorated Sputum Gram Stain - Final 06/24/20 08:43 Sputum - Expectorated Sputum Sputum Culture - Preliminary 06/22/20 14:39 Blood Blood Culture - Preliminary NO GROWTH AFTER 48 HOURS 06/22/20 14:39 Blood Blood Culture - Preliminary NO GROWTH AFTER 48 HOURS - Constitutional no acute distress - *Routine HEENT Exam Head: Present: normocephalic Eye: Present: PERRL ENT: Present: mucous membranes moist - *Routine Neck Exam Present: supple. Absent: lymphadenopathy - *Routine Respiratory Exam Present: rhonchi, wheezes - *Routine Cardiovascular Exam Present: RRR - *Routine Abdominal Exam Present: soft, normoactive bowel sounds. Absent: tenderness - *Routine Extremities Exam Present: normal capillary refill. Absent: cyanosis, clubbing, edema - *Routine Skin Exam Present: warm. Absent: rash - *Routine Neurological Exam Present: alert, oriented X3 - Routine Psychiatric Exam Present: normal affect Assessment and Plan (1) Acute respiratory failure due to COVID-19 Status: Acute Category: Medical Code(s): U07.1 - COVID-19; J96.00 - Acute respiratory failure, unspecified whether with hypoxia or hypercapnia (2) Class 1 obesity with body mass index (BMI) of 33.0 to 33.9 in adult Status: Acute Category: Medical Code(s): E66.9 - Obesity, unspecified; Z68.33 - Body mass index [BMI] 33.0-33.9, adult - Assessment and plan all Dx Assessment and Plan for all problems:: rounded with dr tubbs all orders per dr tubbs wean verperther attempted to wean to o2 nc and or stats dropped to the 80's placed back on verpertherm
--- NOTE | 2020-06-25 13:17 | PC.NURSE ---
RESPIRATORY CARE NOTE: 1310- PT PLACED BACK ON VAPOTHERM AT THIS TIME. 50%, 30 LPM
--- NOTE | 2020-06-25 16:23 | HMH.ACPN ---
Internal Medicine - PN: Subj *Date: 06/25/20 *Time: 16:23 Exam Vital signs and Labs for Last 24 Hours: Temp Pulse Resp BP Pulse Ox 98.3 F 112 H 20 151/95 H 97 06/25/20 12:00 06/25/20 12:00 06/25/20 12:00 06/25/20 12:00 06/25/20 14:00 Laboratory Results - last 24 hr 06/25/20 06:00: Sodium 142, Potassium 4.8, Chloride 106, Carbon Dioxide 27, Anion Gap 13.8, BUN 20, Creatinine 0.90, Estimated Creat Clear 193, Estimated GFR 90, Est GFR ( Amer) 109, Glucose 125 H, Calcium 9.2, Total Bilirubin 0.6, AST 176 H D, ALT 223 H D, Alkaline Phosphatase 97, Total Protein 7.3, Albumin 3.9, Globulin 3.4 H, Albumin/Globulin Ratio 1.1 06/25/20 06:00: WBC 8.1, RBC 4.22 L, Hgb 13.4 L, Hct 38.3 L, MCV 90.9, MCH 31.8 H, MCHC 35.0, RDW 13.2, Plt Count 292, MPV 8.0, Neut % (Auto) 80.2 H, Lymph % (Auto) 14.2, [place] % (Auto) 5.6, Eos % (Auto) 0.0 L, Baso % (Auto) 0.1, Neut # (Auto) 6.5, Lymph # (Auto) 1.2, [place] # (Auto) 0.5, Eos # (Auto) 0.0, Baso # (Auto) 0.0 I & O for Last 24 hours: Intake & Output 06/22/20 06/23/20 06/24/20 06/25/20 23:59 23:59 23:59 23:59 Intake Total 960 / 970 1913 / 4053 4086 / 4086 1276 / 1276 Output Total 2420 / 2420 1650 / 3050 4200 / 4200 3750 / 3750 Balance -1460 / -1450 263 / 1003 -114 / -114 -2474 / -2474 Weight 120 kg 136.305 kg 136 kg 134.717 kg Microbiology Reports for the Last 24 Hours: Microbiology 06/24/20 08:43 Sputum - Expectorated Sputum Gram Stain - Final 06/24/20 08:43 Sputum - Expectorated Sputum Sputum Culture - Preliminary 06/22/20 14:39 Blood Blood Culture - Preliminary NO GROWTH AFTER 48 HOURS 06/22/20 14:39 Blood Blood Culture - Preliminary NO GROWTH AFTER 48 HOURS Assessment and Plan (1) Acute respiratory failure due to COVID-19 Status: Acute Category: Medical Code(s): U07.1 - COVID-19; J96.00 - Acute respiratory failure, unspecified whether with hypoxia or hypercapnia (2) Class 1 obesity with body mass index (BMI) of 33.0 to 33.9 in adult Status: Acute Category: Medical Code(s): E66.9 - Obesity, unspecified; Z68.33 - Body mass index [BMI] 33.0-33.9, adult The patient's infection will respond to the chosen ABx?: Yes Is the patient receiving the right drug, dose, and route?: Yes Could a more targeted ABx be ordered?: No
--- NOTE | 2020-06-25 18:44 | PC.NURSE ---
Attempted to wean patient to nasal cannula this shift, patient tolerated 6L for around 3 house but wore out easily and saturations began to decrease to mid 80's, placed back on vapotherm to 30L/ 50%, patient has been up to chair this shift, ate 100% of all meals, had BM this shift, vss, no s/s of distress noted, will continue to monitor.
[2020-06-26] VITALS (12 sets, daily range): BP systolic 140–164; BP diastolic 76–93; PULSE 70–118; RESP 17–20; TEMP 36.8–36.9; O2SAT 85–94; BMI 33.3
--- NOTE | 2020-06-26 02:06 | PC.NURSE ---
Patient A & O x 4, resting in bed talking on phone, BL clear throughout, voided x 3 with good urine output, VSS: afebrile, O2 sats above 92 with vapotherm 30L @ 50%, elevated BP but does not show any s/s of acute distress, patient reports no pain or discomfort states just tired. Was restful with interval sleeping throughout night.
--- NOTE | 2020-06-26 06:00 | XR_ITS ---
PROCEDURE: XR CHEST PORTABLE CLINICAL HISTORY: covid pneumonia COMPARISON: CR XR CHEST 2V from 06/22/[address] ANGIO CHEST from 06/22/2020 CR XR CHEST PORTABLE from 06/25/2020 FINDINGS: Right upper lobe pneumonia unchanged. The lower lobe pneumonia both sides appears slightly improved. No acute bony abnormalities. IMPRESSION: Slight improvement in pneumonia Dictated by: Isma Dela Cruz MD 06/26/2020 06:56 Isma Dela Cruz MD in [facility] 06/26/2020 06:56
[2020-06-26 06:20] LABS: Chloride 108 mmol/L (98-107); Potassium 4.2 mmoL/L (3.5-5.1); Sodium 141 mmol/L (136-145)
[2020-06-26 06:22] LABS: Alanine Aminotransferase 307 U/L (12-78); Blood Urea Nitrogen 20 mg/dl (9-20); Creatinine Clearance Estimated 193 mL/min (50-200); Estimated Glomerular Filt Rate 90 ml/min (>60); GFR (African American) 109 ML/MIN (>60)
[2020-06-26 06:23] LABS: Albumin Level 3.6 g/dl (3.5-5.0); Alkaline Phosphatase 105 U/L (38-126); Anion Gap 11.2 mEq/L (5-15); Aspartate Amino Transferase 176 U/L (17-59); Bilirubin,Total 0.7 mg/dl (0.2-1.3); Calcium 9.3 mg/dl (8.4-10.2); Carbon Dioxide 26 mmol/L (22.0-30.0); Globulin 3.6 g/dL (1.3-3.2); Glucose 109 mg/dl (74-100); Total Protein,Serum 7.2 g/dl (6.3-8.2)
[2020-06-26 06:44] LABS: Basophils % 0.1 % (0.1-2.0); Hematocrit 38.2 % (42.0-52.0); Hemoglobin 13.3 g/dL (14.1-18.0); Lymphocytes # 1.3 K/mm3 (0.7-4.5); Lymphocytes % 11.5 % (10-50); Mean Corpuscular HGB Conc 34.8 g/dL (31.8-35.4); Mean Corpuscular Hemoglobin 30.8 pg (27.0-31.2); Mean Corpuscular Volume 88.6 fl (80-94); Mean Platelet Volume 8.5 fl (7.4-10.4); Monocytes # 0.5 K/mm3 (0.1-1.0); Monocytes % 4.7 % (1.7-9.3); Neutrophils # 9.4 K/mm3 (1.8-7.8); Neutrophils % 83.7 % (37.0-80.0); Platelet Count 277 K/mm3 (142-424); Red Blood Count 4.32 M/mm3 (4.60-6.20); Red Cell Distribution Width 13.1 % (11.5-17.5); White Blood Count 11.2 K/mm3 (4.8-10.8)
--- NOTE | 2020-06-26 08:46 | HMH.ACPN2 ---
Internal Medicine - PN: Subj *Date: 06/26/20 *Time: 08:46 Interval history: pt sitting up in chair states he is coughing up sputum. per staff he becomes soa with activity Exam Vital signs and Labs for Last 24 Hours: Temp Pulse Resp BP Pulse Ox 98.3 F 114 H 20 154/83 H 86 L 06/26/20 08:00 06/26/20 08:00 06/26/20 08:00 06/26/20 08:00 06/26/20 08:00 Laboratory Results - last 24 hr 06/26/20 05:20: Sodium 141, Potassium 4.2, Chloride 108 H, Carbon Dioxide 26, Anion Gap 11.2, BUN 20, Creatinine 0.90, Estimated Creat Clear 193, Estimated GFR 90, Est GFR ( Amer) 109, Glucose 109 H, Calcium 9.3, Total Bilirubin 0.7, AST 176 H, ALT 307 H*, Alkaline Phosphatase 105, Total Protein 7.2, Albumin 3.6, Globulin 3.6 H, Albumin/Globulin Ratio 1.0 L 06/26/20 05:20: WBC 11.2 H D, RBC 4.32 L, Hgb 13.3 L, Hct 38.2 L, MCV 88.6, MCH 30.8, MCHC 34.8, RDW 13.1, Plt Count 277, MPV 8.5, Neut % (Auto) 83.7 H, Lymph % (Auto) 11.5, [place] % (Auto) 4.7, Eos % (Auto) 0.0 L, Baso % (Auto) 0.1, Neut # (Auto) 9.4 H, Lymph # (Auto) 1.3, [place] # (Auto) 0.5, Eos # (Auto) 0.0, Baso # (Auto) 0.0 I & O for Last 24 hours: Intake & Output 06/23/20 06/24/20 06/25/20 06/26/20 11:59 11:59 11:59 11:59 Intake Total 2633 / 2633 2620 / 2620 2622 / 2982 2886 / 2886 Output Total 2870 / 2870 3350 / 3350 4300 / 4300 5100 / 5100 Balance -237 / -237 -730 / -730 -1678 / -1318 -2214 / -2214 Weight 300 lb 8 oz 297 lb 296 lb 3.2 oz Microbiology Reports for the Last 24 Hours: Microbiology 06/24/20 08:43 Sputum - Expectorated Sputum Gram Stain - Final 06/24/20 08:43 Sputum - Expectorated Sputum Sputum Culture - Preliminary - Constitutional no acute distress - *Routine HEENT Exam Head: Present: normocephalic Eye: Present: PERRL ENT: Present: mucous membranes moist - *Routine Neck Exam Present: supple. Absent: lymphadenopathy - *Routine Respiratory Exam Present: decreased breath sounds, rhonchi - *Routine Cardiovascular Exam Present: RRR - *Routine Abdominal Exam Present: soft, normoactive bowel sounds. Absent: tenderness - *Routine Extremities Exam Absent: cyanosis, clubbing, edema - *Routine Skin Exam Present: intact - *Routine Neurological Exam Present: alert, oriented X3 - Routine Psychiatric Exam Present: normal affect Assessment and Plan (1) Acute respiratory failure due to COVID-19 Status: Acute Category: Medical Code(s): U07.1 - COVID-19; J96.00 - Acute respiratory failure, unspecified whether with hypoxia or hypercapnia (2) Class 1 obesity with body mass index (BMI) of 33.0 to 33.9 in adult Status: Acute Category: Medical Code(s): E66.9 - Obesity, unspecified; Z68.33 - Body mass index [BMI] 33.0-33.9, adult - Assessment and plan all Dx Assessment and Plan for all problems:: rounded with dr tubbs all orders per dr tubbs try weaning vapertherm
--- NOTE | 2020-06-26 09:04 | HMH.PULMPN ---
Internal Medicine - PN: Subj *Date: 06/26/20 *Time: 14:18 Interval history: No acute restaurant overnight. Patient not tolerated nasal cannula, escalated high flow nasal cannula again. Exam - Constitutional Constitutional:: Present: no acute distress, comfortable - Eye Exam Eyes:: Present: normal appearance both eyes and related structures - Neck Exam Neck:: Present: normal visual inspection - Respiratory Exam Respiratory:: Present: able to speak in complete sentences, no respiratory distress, normal respiratory effort, crackles. Absent: accessory muscle use - Cardiovascular Exam Cardiac:: Present: S1, S2 - Skin Exam Skin: Present: warm, no rash, dry - Neurological Exam Neurological: Present: alert, awake, normal cognition - Extremities Exam Extremities: Present: no cyanosis, no clubbing, no edema - Psychiatric Exam Psychiatric: Present: normal affect Assessment and Plan (1) Acute respiratory failure due to COVID-19 Status: Acute Category: Medical Code(s): U07.1 - COVID-19; J96.00 - Acute respiratory failure, unspecified whether with hypoxia or hypercapnia (2) Class 1 obesity with body mass index (BMI) of 33.0 to 33.9 in adult Status: Acute Category: Medical Code(s): E66.9 - Obesity, unspecified; Z68.33 - Body mass index [BMI] 33.0-33.9, adult - Assessment and plan all Dx Assessment and Plan for all problems:: #Acute hypoxic respiratory failure: #COVID-19 pneumonia: 49-year-old no prior respiratory complaints presented with worsening respiratory failure and found to be COVID-19 positive and was admitted for further management. Patient has a CTA performed that was negative for PE however showed bilateral groundglass opacities. ABG from admission reviewed, showed hypoxic respiratory failure. Patient on admission was initiated on ceftriaxone azithromycin along with remdesivir and dexamethasone. Interval update: Patient did not tolerated nasal cannula 6 L, escalated to high flow nasal cannula however improved from admission. Net negative 3 L status post 40 mg of Lasix. Blood cultures no growth 48 hours. Sputum staining rare gram-positive cocci in pairs and chains, will continue to monitor Afebrile. Hemodynamically stable. Renal function stable. Plan: - Continue oxygen supplementation with HFNC saturation goal of 88% to 92%, wean oxygen as tolerated - Continue ceftriaxone azithromycin for possible community-acquired pneumonia - Continue remdesivir and dexamethasone - DuoNebs every 6 hours as needed #Thank you for involving pulmonary in this patient care. We will continue to follow.
--- NOTE | 2020-06-26 17:12 | DIET.NUTRFU ---
Addendum entered by Ruby Rasheed 06/29/20 14:39: PO intakes 100%, weight has remained stable within 4#. Pt on regular diet, no changes, continuing to monitor Original Note: PO intakes 75%, weight stable. Continuing to monitor.
--- NOTE | 2020-06-26 17:35 | PC.NURSE ---
Patient is currently sitting in a recliner speaking to on the phone, appears to be in high spirits. Neurologically patient remains alert and oriented x 5. Has expressed that he feels more depressed today than he has and wishes he could get out of his room. Cardiac: patient has been sinus/sinus tach on telemetry with occasional pvc's. Blood pressure has been normotensive. Pulmonary: Patient is currently on vapotherm 30liters 65%. Patient continues to desat with exertion. Oxygen saturation will drop to mid 70's but will rebound. Has Incentive spirometer in his room. Has been laying prone in bed when sleeping. GI: Patient had a bm today. Appetite is good. No n/v/d/. : patient has been urinating well. Urine is clear and yellow. Skin: c/d/i Activity: Has been ambulating in his room. Case management left paperwork at desk arranging for patient to have home oxygen if he discharges over the weekend. Will continue to monitor patient.
[2020-06-27] VITALS (8 sets, daily range): BP systolic 123–165; BP diastolic 72–99; PULSE 70–101; RESP 14–24; TEMP 36.8–37.5; O2SAT 87–97; BMI 33.3
--- NOTE | 2020-06-27 04:33 | PC.NURSE ---
Addendum entered by Bertha Montalvo RN 06/27/20 04:39: lung sounds diminished on auscultation Original Note: pt is AxOx4, remains on vapotherm at 30 L at 60%, O2 sats 92-97% at rest, does desat with exertion, dropped to mid 70's while moving from bed to chair but recovered to 88% within 5 minutes, respirations 18-20, pt has IS at bedside and used it prior to going to bed, has independently turned to prone position t/o the shift, has been NSR on telemetry with occasional PVCs, does complain of SOA with exertion but has had no complaints of chest pain
--- NOTE | 2020-06-27 06:00 | XR_ITS ---
PROCEDURE: XR CHEST PORTABLE CLINICAL HISTORY: covid pneumonia Follow-up pneumonia COMPARISON: CR XR CHEST 2V from 06/22/[address] ANGIO CHEST from 06/22/2020 CR XR CHEST PORTABLE from 06/25/2020 CR XR CHEST PORTABLE from 06/26/2020 FINDINGS: The cardiomediastinal silhouette and pulmonary vascularity are within normal limits. No change bilateral pneumonia in both upper and lower lobes. No evidence of pneumothorax. No acute bony abnormalities. IMPRESSION: No change bilateral pneumonia Dictated by: Isma Dela Cruz MD 06/27/2020 07:00 Isma Dela Cruz MD in [facility] 06/27/2020 07:00
[2020-06-27 06:35] LABS: Basophils % 0.2 % (0.1-2.0); Eosinophils % 0.1 % (0.1-12.0); Hematocrit 39.2 % (42.0-52.0); Hemoglobin 13.5 g/dL (14.1-18.0); Lymphocytes # 1.5 K/mm3 (0.7-4.5); Lymphocytes % 10.4 % (10-50); Mean Corpuscular HGB Conc 34.3 g/dL (31.8-35.4); Mean Corpuscular Hemoglobin 31.1 pg (27.0-31.2); Mean Corpuscular Volume 90.6 fl (80-94); Mean Platelet Volume 8.1 fl (7.4-10.4); Monocytes # 0.6 K/mm3 (0.1-1.0); Monocytes % 4.2 % (1.7-9.3); Neutrophils # 12.5 K/mm3 (1.8-7.8); Neutrophils % 85.1 % (37.0-80.0); Platelet Count 282 K/mm3 (142-424); Red Blood Count 4.33 M/mm3 (4.60-6.20); Red Cell Distribution Width 13.1 % (11.5-17.5); White Blood Count 14.7 K/mm3 (4.8-10.8)
[2020-06-27 06:49] LABS: Alanine Aminotransferase 343 U/L (12-78); Albumin Level 3.8 g/dl (3.5-5.0); Alkaline Phosphatase 101 U/L (38-126); Anion Gap 12.3 mEq/L (5-15); Aspartate Amino Transferase 169 U/L (17-59); Bilirubin,Total 0.7 mg/dl (0.2-1.3); Blood Urea Nitrogen 20 mg/dl (9-20); Calcium 9.2 mg/dl (8.4-10.2); Carbon Dioxide 27 mmol/L (22.0-30.0); Chloride 103 mmol/L (98-107); Creatinine Clearance Estimated 193 mL/min (50-200); Estimated Glomerular Filt Rate 90 ml/min (>60); GFR (African American) 109 ML/MIN (>60); Globulin 3.7 g/dL (1.3-3.2); Glucose 116 mg/dl (74-100); Potassium 4.3 mmoL/L (3.5-5.1); Sodium 138 mmol/L (136-145); Total Protein,Serum 7.5 g/dl (6.3-8.2)
[2020-06-27 07:07] LABS: MANUAL DIFFERENTIAL MANUAL DIFFERENTIAL (MANUAL DIFF)
[2020-06-27 08:21] LABS: Lymphocytes % 12 % (10-50); Monocytes % 5 % (2-9); Neutrophils % 79 % (42-76); Platelet Estimate Normal; RBC Morphology Normal; Total Cells Counted 100
--- NOTE | 2020-06-27 15:36 | PC.NURSE ---
Spoke with and it was decided that patient would be transferred to a negative pressure room on [facility]. There is concern that patient is becoming depressed being in his current room. Patient is agreeable to transfer. Explained to patient the importance of using his incentive spirometer hourly and proning himself every 2 hours while awake and sleeping on his stomach at night as much as possible. Advised patient to be cautious when ambulating and not to overexert himself.
--- NOTE | 2020-06-27 15:40 | HMH.ACPN2 ---
Internal Medicine - PN: Subj *Date: 06/27/20 *Time: 15:41 Interval history: dyspnea w/exertion vapotherm 60 pct fi02 30 lpm weak but improving will move to the floor today Exam Vital signs and Labs for Last 24 Hours: Temp Pulse Resp BP Pulse Ox 98.3 F 101 H 18 145/76 H 87 L 06/27/20 12:00 06/27/20 12:00 06/27/20 12:00 06/27/20 12:00 06/27/20 12:00 Laboratory Results - last 24 hr 06/27/20 05:30: WBC 14.7 H D, RBC 4.33 L, Hgb 13.5 L, Hct 39.2 L, MCV 90.6, MCH 31.1, MCHC 34.3, RDW 13.1, Plt Count 282, MPV 8.1, Neut % (Auto) 85.1 H, Lymph % (Auto) 10.4, [place] % (Auto) 4.2, Eos % (Auto) 0.1, Baso % (Auto) 0.2, Neut # (Auto) 12.5 H, Lymph # (Auto) 1.5, [place] # (Auto) 0.6, Eos # (Auto) 0.0, Baso # (Auto) 0.0, Total Counted 100, Neutrophils % (Manual) 79 H, Band Neutrophils % 4.0, Lymphocytes % (Manual) 12, Monocytes % (Manual) 5, Platelet Estimate Normal, RBC Morphology Normal 06/27/20 05:30: Sodium 138, Potassium 4.3, Chloride 103, Carbon Dioxide 27, Anion Gap 12.3, BUN 20, Creatinine 0.90, Estimated Creat Clear 193, Estimated GFR 90, Est GFR ( Amer) 109, Glucose 116 H, Calcium 9.2, Total Bilirubin 0.7, AST 169 H, ALT 343 H*, Alkaline Phosphatase 101, Total Protein 7.5, Albumin 3.8, Globulin 3.7 H, Albumin/Globulin Ratio 1.0 L I & O for Last 24 hours: Intake & Output 06/24/20 06/25/20 06/26/20 06/27/20 23:59 23:59 23:59 23:59 Intake Total 4086 / 4086 2116 / 2116 4694 / 4694 2352 / 2352 Output Total 4200 / 4200 5550 / 5550 3350 / 3350 3395 / 3395 Balance -114 / -114 -3434 / -3434 1344 / 1344 -1043 / -1043 Weight 299 lb 13.259 oz 297 lb 296 lb 3.2 oz 296 lb 8.348 oz Microbiology Reports for the Last 24 Hours: Microbiology 06/22/20 14:39 Blood Blood Culture - Final NO GROWTH AFTER 5 DAYS 06/22/20 14:39 Blood Blood Culture - Final NO GROWTH AFTER 5 DAYS 06/24/20 08:43 Sputum - Expectorated Sputum Gram Stain - Final 06/24/20 08:43 Sputum - Expectorated Sputum Sputum Culture - Preliminary - Constitutional no acute distress - *Routine HEENT Exam Head: Present: normocephalic Eye: Present: EOMI, PERRL ENT: Present: mucous membranes moist - *Routine Neck Exam Present: supple. Absent: lymphadenopathy - *Routine Respiratory Exam Present: crackles. Absent: respiratory distress, rhonchi, stridor, wheezes - *Routine Cardiovascular Exam Present: RRR - *Routine Abdominal Exam Present: soft, normoactive bowel sounds. Absent: tenderness - *Routine Extremities Exam Absent: cyanosis, clubbing, edema - *Routine Skin Exam Present: warm. Absent: rash - *Routine Neurological Exam Present: alert, oriented X3 Assessment and Plan (1) Acute respiratory failure due to COVID-19 Status: Acute Category: Medical Code(s): U07.1 - COVID-19; J96.00 - Acute respiratory failure, unspecified whether with hypoxia or hypercapnia (2) Class 1 obesity with body mass index (BMI) of 33.0 to 33.9 in adult Status: Acute Category: Medical Code(s): E66.9 - Obesity, unspecified; Z68.33 - Body mass index [BMI] 33.0-33.9, adult - Assessment and plan all Dx Assessment and Plan for all problems:: He is reviewed, no change in the pneumonia. Patient is however clinically improving. We will continue current treatment.
--- NOTE | 2020-06-27 17:03 | PC.NURSE ---
Patient has had a good day. Neuro is alert and oriented. Slightly withdrawn at the beginning of shift Cardiac: patient has been normal sinus/ sinus tach with pvc's. Normotensive. Pulmonary: 30l 60%fi02 on nonrebreather. Prones self every 2 hours, uses incentive spirometer appropriately. GI: great appetite. No n/v/d. BM today. : good urine output. Skin is c/d/i. Patient transferred to room 212 on nonrebreather. Uneventful transfer. Patient was set up in his room. No issues or concerns. Report given to Justa Kim rn.
[2020-06-28] VITALS (9 sets, daily range): BP systolic 110–155; BP diastolic 15–85; PULSE 60–101; RESP 14–26; TEMP 36.6–37; O2SAT 85–98; BMI 33.8
--- NOTE | 2020-06-28 02:40 | PC.NURSE ---
No acute changes. Pt remains on 30 L 60% on vapotherm. Lungs are diminished. Pt has been using incentive spirometer and laying in prone position at intervals this shift. O2 sats ranging mid to upper 90s with periods of desat with exertion. Pt recovers good. VSS. Medications administered per aug. Will continue to monitor.
--- NOTE | 2020-06-28 03:41 | PC.NURSE ---
Pt desat this AM to 84-85% and maintained. Pt stated thata he just woke up. RT called. Vapotherm adjusted to 40L 90% at this time.
--- NOTE | 2020-06-28 06:00 | XR_ITS ---
PROCEDURE: XR CHEST PORTABLE CLINICAL HISTORY: covid pneumonia COMPARISON: CT CT ANGIO CHEST from 06/22/2020 CR XR CHEST PORTABLE from 06/25/2020 CR XR CHEST PORTABLE from 06/26/2020 CR XR CHEST PORTABLE from 06/27/2020 FINDINGS: The cardiomediastinal silhouette and pulmonary vascularity are within normal limits. There is diffuse bilateral pneumonia which appears slightly worse on left. Some of this could be related to the technique. No acute bony abnormalities. IMPRESSION: Diffuse bilateral pneumonia slightly worse on the left Dictated by: Isma Dela Cruz MD 06/28/2020 07:14 Isma Dela Cruz MD in [facility] 06/28/2020 07:14
[2020-06-28 06:18] LABS: Basophils % 0.2 % (0.1-2.0); Eosinophils % 0.2 % (0.1-12.0); Hematocrit 40.7 % (42.0-52.0); Hemoglobin 13.4 g/dL (14.1-18.0); Lymphocytes # 1.5 K/mm3 (0.7-4.5); Lymphocytes % 10.6 % (10-50); Mean Corpuscular HGB Conc 32.9 g/dL (31.8-35.4); Mean Corpuscular Volume 91.2 fl (80-94); Mean Platelet Volume 7.7 fl (7.4-10.4); Monocytes # 0.6 K/mm3 (0.1-1.0); Neutrophils # 11.9 K/mm3 (1.8-7.8); Neutrophils % 85.1 % (37.0-80.0); Platelet Count 265 K/mm3 (142-424); Red Blood Count 4.47 M/mm3 (4.60-6.20); White Blood Count 13.9 K/mm3 (4.8-10.8)
[2020-06-28 06:21] LABS: MANUAL DIFFERENTIAL MANUAL DIFFERENTIAL (MANUAL DIFF)
[2020-06-28 06:29] LABS: Chloride 105 mmol/L (98-107)
[2020-06-28 06:30] LABS: Potassium 4.2 mmoL/L (3.5-5.1); Sodium 140 mmol/L (136-145)
[2020-06-28 06:32] LABS: Alanine Aminotransferase 258 U/L (12-78); Alkaline Phosphatase 107 U/L (38-126); Aspartate Amino Transferase 82 U/L (17-59); Bilirubin,Total 0.6 mg/dl (0.2-1.3); Blood Urea Nitrogen 21 mg/dl (9-20); Creatinine Clearance Estimated 196 mL/min (50-200); Estimated Glomerular Filt Rate 90 ml/min (>60); GFR (African American) 109 ML/MIN (>60)
[2020-06-28 06:33] LABS: Albumin Level 3.7 g/dl (3.5-5.0); Anion Gap 9.2 mEq/L (5-15); Calcium 9.3 mg/dl (8.4-10.2); Carbon Dioxide 30 mmol/L (22.0-30.0); Globulin 3.7 g/dL (1.3-3.2); Glucose 114 mg/dl (74-100); Total Protein,Serum 7.4 g/dl (6.3-8.2)
[2020-06-28 08:22] LABS: Eosinophils % 1 % (0-3); Lymphocytes % 15 % (10-50); Monocytes % 3 % (2-9); Neutrophils % 76 % (42-76); Platelet Estimate Normal; RBC Morphology Normal; Total Cells Counted 100
--- NOTE | 2020-06-28 09:26 | P.PN_ITS ---
Internal Medicine - PN: Subj *Date: 06/28/20 *Time: 10:13 Interval history: feels ok but still with need for vasotherm Exam Vital signs and Labs for Last 24 Hours: Temp Pulse Resp BP Pulse Ox 98.6 F 91 H 18 148/79 H 96 06/28/20 08:00 06/28/20 08:00 06/28/20 08:00 06/28/20 08:00 06/28/20 08:00 Laboratory Results - last 24 hr 06/28/20 05:24: WBC 13.9 H, RBC 4.47 L, Hgb 13.4 L, Hct 40.7 L, MCV 91.2, MCH 30.0, MCHC 32.9, RDW 13.0, Plt Count 265, MPV 7.7, Neut % (Auto) 85.1 H, Lymph % (Auto) 10.6, [place] % (Auto) 4.0, Eos % (Auto) 0.2, Baso % (Auto) 0.2, Neut # (Auto) 11.9 H, Lymph # (Auto) 1.5, [place] # (Auto) 0.6, Eos # (Auto) 0.0, Baso # (Auto) 0.0, Total Counted 100, Neutrophils % (Manual) 76, Band Neutrophils % 2.0, Lymphocytes % (Manual) 15, Monocytes % (Manual) 3, Eosinophils % (Manual) 1, Metamyelocytes % 3.0 H, Platelet Estimate Normal, RBC Morphology Normal 06/28/20 05:24: Sodium 140, Potassium 4.2, Chloride 105, Carbon Dioxide 30, Anion Gap 9.2, BUN 21 H, Creatinine 0.90, Estimated Creat Clear 196, Estimated GFR 90, Est GFR ( Amer) 109, Glucose 114 H, Calcium 9.3, Total Bilirubin 0.6, AST 82 H D, ALT 258 H, Alkaline Phosphatase 107, Total Protein 7.4, Albumin 3.7, Globulin 3.7 H, Albumin/Globulin Ratio 1.0 L I & O for Last 24 hours: Intake & Output 06/25/20 06/26/20 06/27/20 06/28/20 11:59 11:59 11:59 11:59 Intake Total 2622 / 2982 3606 / 3606 4160 / 4160 3165 / 3165 Output Total 4300 / 4300 5100 / 5600 4145 / 4145 2800 / 2800 Balance -1678 / -1318 -1494 / -1994 365 / 365 Weight 297 lb 296 lb 3.2 oz 296 lb 8.348 oz 301 lb 7 oz Microbiology Reports for the Last 24 Hours: Microbiology 06/24/20 08:43 Sputum - Expectorated Sputum Gram Stain - Final 06/24/20 08:43 Sputum - Expectorated Sputum Sputum Culture - Final Normal Respiratory Isabel 06/22/20 14:39 Blood Blood Culture - Final NO GROWTH AFTER 5 DAYS 06/22/20 14:39 Blood Blood Culture - Final NO GROWTH AFTER 5 DAYS - Constitutional no acute distress - *Routine HEENT Exam Head: Present: normocephalic Eye: Present: EOMI, PERRL ENT: Present: mucous membranes dry - *Routine Neck Exam Absent: JVD - *Routine Respiratory Exam Present: rhonchi - *Routine Cardiovascular Exam Present: RRR, murmur - *Routine Abdominal Exam Present: soft - *Routine Extremities Exam Absent: calf tenderness - *Routine Skin Exam Present: intact - *Routine Neurological Exam Present: alert, oriented X3, CN II-XII intact - Routine Psychiatric Exam Present: normal affect Assessment and Plan (1) Acute respiratory failure due to COVID-19 Status: Acute Category: Medical Code(s): U07.1 - COVID-19; J96.00 - Acute respiratory failure, unspecified whether with hypoxia or hypercapnia (2) Class 1 obesity with body mass index (BMI) of 33.0 to 33.9 in adult Status: Acute Category: Medical Code(s): E66.9 - Obesity, unspecified; Z68.33 - Body mass index [BMI] 33.0-33.9, adult
--- NOTE | 2020-06-28 19:31 | PC.NURSE ---
Patient is currently resting in prone position. Patient is neuro alert and oriented x 4. Pulm patient is currently on the vapotherm at 25% and 60L. Patinet prones self q2 hours and uses the incentive spirometer multiple times an hour. Patient desat'ed to the low 80's today during ambulation but rebounded within 2 minutes. GI: patient has a regular diet. No n/v/d. : uses toilet. No issues or concerns. Skin: no issues. Patient expresses concerns about not being able to sleep at night. Will page md to request melatonin per patient request, states he takes roughly 4 mg at home. WIll continue to monitor. Oxygenation is only concern but has done very well throughout the day with only one episode of oxygen being in the 80's which is much improved from yesterday.
[2020-06-29] VITALS (9 sets, daily range): BP systolic 124–177; BP diastolic 62–91; PULSE 50–121; RESP 10–25; TEMP 36.7–37.2; O2SAT 88–99; BMI 33.5
--- NOTE | 2020-06-29 05:41 | PC.NURSE ---
pt is AxOx4, remains on vapotherm at 25 L at 60%, sats have been 95-98%, respirations 18-21, telemetry show SB and NSR, no complaints of SOA or chest pain, only complaint is trouble sleeping at night, controls design engineer paged and new order received and carried out, pt has rested more this shift, has remained in prone position while in bed, using urinal independently with clear yellow urine noted, has ambulated independently in room
[2020-06-29 07:28] LABS: Chloride 104 mmol/L (98-107)
[2020-06-29 07:31] LABS: Alanine Aminotransferase 199 U/L (12-78); Albumin Level 3.6 g/dl (3.5-5.0); Albumin/Globulin Ratio 0.9 (1.1-1.8); Alkaline Phosphatase 98 U/L (38-126); Anion Gap 12.2 mEq/L (5-15); Aspartate Amino Transferase 49 U/L (17-59); Bilirubin,Total 0.5 mg/dl (0.2-1.3); Blood Urea Nitrogen 20 mg/dl (9-20); Calcium 9.3 mg/dl (8.4-10.2); Carbon Dioxide 27 mmol/L (22.0-30.0); Creatinine Clearance Estimated 219 mL/min (50-200); Estimated Glomerular Filt Rate 104 ml/min (>60); GFR (African American) 125 ML/MIN (>60); Globulin 3.8 g/dL (1.3-3.2); Glucose 119 mg/dl (74-100); Potassium 4.2 mmoL/L (3.5-5.1); Sodium 139 mmol/L (136-145); Total Protein,Serum 7.4 g/dl (6.3-8.2)
--- NOTE | 2020-06-29 09:05 | HMH.ACPN2 ---
Internal Medicine - PN: Subj *Date: 06/29/20 *Time: 08:00 Interval history: pt laying on stomach talking on phone. pt states he coughed up alot of mucus but seems to feel better Exam Vital signs and Labs for Last 24 Hours: Temp Pulse Resp BP Pulse Ox 98.3 F 77 18 142/87 H 95 06/29/20 04:00 06/29/20 04:00 06/29/20 04:00 06/29/20 04:00 06/29/20 04:00 Laboratory Results - last 24 hr 06/29/20 06:53: Sodium 139, Potassium 4.2, Chloride 104, Carbon Dioxide 27, Anion Gap 12.2, BUN 20, Creatinine 0.80, Estimated Creat Clear 219, Estimated GFR 104, Est GFR ( Amer) 125, Glucose 119 H, Calcium 9.3, Total Bilirubin 0.5, AST 49 D, ALT 199 H, Alkaline Phosphatase 98, Total Protein 7.4, Albumin 3.6, Globulin 3.8 H, Albumin/Globulin Ratio 0.9 L I & O for Last 24 hours: Intake & Output 06/26/20 06/27/20 06/28/20 06/29/20 11:59 11:59 11:59 11:59 Intake Total 3606 / 3606 4160 / 4160 3165 / 3165 960 / 960 Output Total 5100 / 5600 4145 / 4145 2800 / 2800 1100 / 1100 Balance -1494 / -1994 365 / 365 -140 / -140 Weight 296 lb 3.2 oz 296 lb 8.348 oz 301 lb 7 oz 299 lb 3 oz Microbiology Reports for the Last 24 Hours: Microbiology 06/24/20 08:43 Sputum - Expectorated Sputum Gram Stain - Final 06/24/20 08:43 Sputum - Expectorated Sputum Sputum Culture - Final Normal Respiratory Isabel - Constitutional no acute distress - *Routine HEENT Exam Head: Present: normocephalic Eye: Present: PERRL ENT: Present: mucous membranes moist - *Routine Neck Exam Present: supple. Absent: lymphadenopathy - *Routine Respiratory Exam Present: decreased breath sounds, rhonchi - *Routine Cardiovascular Exam Present: RRR - *Routine Abdominal Exam Present: soft, normoactive bowel sounds. Absent: tenderness - *Routine Extremities Exam Present: normal capillary refill. Absent: cyanosis, clubbing, edema - *Routine Skin Exam Present: warm. Absent: rash - *Routine Neurological Exam Present: alert, oriented X3 - Routine Psychiatric Exam Present: normal affect Assessment and Plan (1) Acute respiratory failure due to COVID-19 Status: Acute Category: Medical Code(s): U07.1 - COVID-19; J96.00 - Acute respiratory failure, unspecified whether with hypoxia or hypercapnia (2) Class 1 obesity with body mass index (BMI) of 33.0 to 33.9 in adult Status: Acute Category: Medical Code(s): E66.9 - Obesity, unspecified; Z68.33 - Body mass index [BMI] 33.0-33.9, adult - Assessment and plan all Dx Assessment and Plan for all problems:: rounded with dr tubbs all orders per dr tubbs try weaning vapertherm
--- NOTE | 2020-06-29 13:10 | HMH.PULMPN ---
Internal Medicine - PN: Subj *Date: 06/29/20 *Time: 13:10 Interval history: No acute respiratory events over the weekend. Patient remains on high flow nasal cannula at 60%. Exam - Constitutional Constitutional:: Present: no acute distress, comfortable - HENMT Exam HENMT: Present: normocephalic, atraumatic - Eye Exam Eyes:: Present: normal appearance both eyes and related structures - Neck Exam Neck:: Present: normal visual inspection - Respiratory Exam Respiratory:: Present: able to speak in complete sentences, crackles. Absent: wheezing - Cardiovascular Exam Cardiac:: Present: S1, S2. Absent: regular rhythm - GI Exam GI:: Present: soft - Skin Exam Skin: Present: warm, no rash - Neurological Exam Neurological: Present: alert, awake, normal cognition - Extremities Exam Extremities: Present: no cyanosis, no clubbing, no edema Assessment and Plan (1) Acute respiratory failure due to COVID-19 Status: Acute Category: Medical Code(s): U07.1 - COVID-19; J96.00 - Acute respiratory failure, unspecified whether with hypoxia or hypercapnia (2) Class 1 obesity with body mass index (BMI) of 33.0 to 33.9 in adult Status: Acute Category: Medical Code(s): E66.9 - Obesity, unspecified; Z68.33 - Body mass index [BMI] 33.0-33.9, adult - Assessment and plan all Dx Assessment and Plan for all problems:: #Acute hypoxic respiratory failure: #COVID-19 pneumonia: 49-year-old no prior respiratory complaints presented with worsening respiratory failure and found to be COVID-19 positive and was admitted for further management. Patient has a CTA performed that was negative for PE however showed bilateral groundglass opacities. ABG from admission reviewed, showed hypoxic respiratory failure. Patient on admission was initiated on ceftriaxone azithromycin along with remdesivir and dexamethasone. Interval update: Patient respiratory status showing very slow improvement in his status. Patient currently on 25 L at 60% high flow nasal cannula, attempted to wean to 55% with desaturations down to 84%. Patient appeared comfortable and not in any respiratory distress. Auscultation had bilateral crackles unchanged from prior. Chest x-ray showed slight worsening of his pulmonary infiltrates. Overall this patient's respiratory status improved from his admission however showing very slow clinical improvement. We will closely monitor. Plan: - Disontinue ceftriaxone azithromycin as patient completed a total of 7-day course - Continue awake proning protocol, patient tolerating well - Lasix 40 mg IV once - Continue oxygen supplementation with HFNC saturation goal of 88% to 92%, wean oxygen as tolerated - Continue remdesivir x 10 days and dexamethasone - DuoNebs every 6 hours as needed #Thank you for involving pulmonary in this patient care. We will continue to follow.
--- NOTE | 2020-06-29 20:35 | PC.NURSE ---
Pt alert and oriented and able to make needs known. Has had intermittent episodes of sinus tach this shift and de sats with exertion. Pt now on non rebreather and started shift on vapotherm. Pt states his breathing has improved and he is more comfortable. CB in reach, has sit in chair this shift, and lied prone this shift intermittently. VSS. Over 3000 ml u/o this shift. IV lasix x 1 and meds per aug.
[2020-06-30] VITALS (12 sets, daily range): BP systolic 137–157; BP diastolic 68–93; PULSE 60–102; RESP 19–20; TEMP 36.4–36.9; O2SAT 93–99; BMI 33.0
[2020-06-30 05:39] LABS: Basophils % 0.2 % (0.1-2.0); Eosinophils % 0.1 % (0.1-12.0); Hematocrit 42.3 % (42.0-52.0); Hemoglobin 14.3 g/dL (14.1-18.0); Lymphocytes # 1.4 K/mm3 (0.7-4.5); Lymphocytes % 8.1 % (10-50); Mean Corpuscular HGB Conc 33.9 g/dL (31.8-35.4); Mean Corpuscular Hemoglobin 30.7 pg (27.0-31.2); Mean Corpuscular Volume 90.7 fl (80-94); Mean Platelet Volume 8.4 fl (7.4-10.4); Monocytes # 0.7 K/mm3 (0.1-1.0); Monocytes % 4.2 % (1.7-9.3); Neutrophils # 15.1 K/mm3 (1.8-7.8); Neutrophils % 87.5 % (37.0-80.0); Platelet Count 268 K/mm3 (142-424); Red Blood Count 4.66 M/mm3 (4.60-6.20); Red Cell Distribution Width 13.1 % (11.5-17.5); White Blood Count 17.3 K/mm3 (4.8-10.8)
[2020-06-30 05:50] LABS: Alanine Aminotransferase 161 U/L (12-78); Albumin Level 3.6 g/dl (3.5-5.0); Albumin/Globulin Ratio 0.9 (1.1-1.8); Alkaline Phosphatase 102 U/L (38-126); Anion Gap 11.7 mEq/L (5-15); Aspartate Amino Transferase 43 U/L (17-59); Bilirubin,Total 0.5 mg/dl (0.2-1.3); Blood Urea Nitrogen 22 mg/dl (9-20); Calcium 9.4 mg/dl (8.4-10.2); Carbon Dioxide 28 mmol/L (22.0-30.0); Chloride 104 mmol/L (98-107); Creatinine Clearance Estimated 215 mL/min (50-200); Estimated Glomerular Filt Rate 104 ml/min (>60); GFR (African American) 125 ML/MIN (>60); Globulin 3.8 g/dL (1.3-3.2); Glucose 121 mg/dl (74-100); Potassium 4.7 mmoL/L (3.5-5.1); Sodium 139 mmol/L (136-145); Total Protein,Serum 7.4 g/dl (6.3-8.2)
[2020-06-30 06:05] LABS: MANUAL DIFFERENTIAL MANUAL DIFFERENTIAL (MANUAL DIFF)
--- NOTE | 2020-06-30 07:11 | PC.NURSE ---
shift summary pts lung sounds are diminished with coarse crackles, pts sats remained between 90-98% on a non rebreather with a rate ranging from 24-28. pt does not tolerate activity well when standing to use bedside urinal pts sats drop to 88-90%. pts prones himself and tolerates well.
--- NOTE | 2020-06-30 08:42 | HMH.ACPN2 ---
Internal Medicine - PN: Subj *Date: 06/30/20 *Time: 09:12 Interval history: 49-year-old male patient sitting up in chair with shortness of breath. He reports he has been eating breakfast and has placed mask back on. Patient instructed to take frequent breaks during meals replacing mask every few bites. He denies shortness of breath when wearing nonrebreather and denies chest pain. Pulmonology seen yesterday and recommends. Plan: - Disontinue ceftriaxone azithromycin as patient completed a total of 7-day course - Continue awake proning protocol, patient tolerating well - Lasix 40 mg IV once - Continue oxygen supplementation with HFNC saturation goal of 88% to 92%, wean oxygen as tolerated - Continue remdesivir x 10 days and dexamethasone - DuoNebs every 6 hours as needed Exam Vital signs and Labs for Last 24 Hours: Temp Pulse Resp BP Pulse Ox 98.2 F 86 20 157/77 H 94 L 06/30/20 07:58 06/30/20 07:58 06/30/20 07:58 06/30/20 07:58 06/30/20 07:58 Laboratory Results - last 24 hr 06/30/20 05:10: WBC 17.3 H, RBC 4.66, Hgb 14.3, Hct 42.3, MCV 90.7, MCH 30.7, MCHC 33.9, RDW 13.1, Plt Count 268, MPV 8.4, Neut % (Auto) 87.5 H, Lymph % (Auto) 8.1 L, [place] % (Auto) 4.2, Eos % (Auto) 0.1, Baso % (Auto) 0.2, Neut # (Auto) 15.1 H, Lymph # (Auto) 1.4, [place] # (Auto) 0.7, Eos # (Auto) 0.0, Baso # (Auto) 0.0 06/30/20 05:10: Sodium 139, Potassium 4.7, Chloride 104, Carbon Dioxide 28, Anion Gap 11.7, BUN 22 H, Creatinine 0.80, Estimated Creat Clear 215, Estimated GFR 104, Est GFR ( Amer) 125, Glucose 121 H, Calcium 9.4, Total Bilirubin 0.5, AST 43, ALT 161 H, Alkaline Phosphatase 102, Total Protein 7.4, Albumin 3.6, Globulin 3.8 H, Albumin/Globulin Ratio 0.9 L I & O for Last 24 hours: Intake & Output 06/27/20 06/28/20 06/29/20 06/30/20 23:59 23:59 23:59 23:59 Intake Total 3012 / 3012 2865 / 2985 1780 / 1780 1336 / 1336 Output Total 3395 / 3395 3100 / 3100 4750 / 4975 725 / 725 Balance -383 / -383 -235 / -115 -2970 / -3195 611 / 611 Weight 296 lb 8.348 oz 301 lb 7 oz 299 lb 3 oz 294 lb 2 oz - Constitutional mild distress, cooperative - *Routine HEENT Exam Head: Present: normocephalic Eye: Present: EOMI ENT: Present: mucous membranes moist - *Routine Neck Exam Present: supple, trachea midline. Absent: tracheal deviation - *Routine Respiratory Exam Present: CTA bilaterally. Absent: accessory muscle use - *Routine Cardiovascular Exam Present: RRR. Absent: tachycardia - *Routine Abdominal Exam Present: soft, normoactive bowel sounds. Absent: tenderness, guarding - *Routine Extremities Exam Present: full ROM, pulses intact. Absent: cyanosis, clubbing, calf tenderness - *Routine Skin Exam Present: intact, dry, warm. Absent: cyanosis, erythema - *Routine Neurological Exam Present: alert, oriented X3. Absent: altered mental status - Routine Psychiatric Exam Present: normal affect, normal thought process. Absent: auditory hallucinations, visual hallucinations Assessment and Plan (1) Acute respiratory failure due to COVID-19 Status: Acute Category: Medical Code(s): U07.1 - COVID-19; J96.00 - Acute respiratory failure, unspecified whether with hypoxia or hypercapnia (2) Class 1 obesity with body mass index (BMI) of 33.0 to 33.9 in adult Status: Acute Category: Medical Code(s): E66.9 - Obesity, unspecified; Z68.33 - Body mass index [BMI] 33.0-33.9, adult - Assessment and plan all Dx Assessment and Plan for all problems:: Rounded with Dr. Gardner, all orders per Dr. Gardner: 1. Continue medical regimen 2. Awaiting pulmonology to see
[2020-06-30 08:59] LABS: Lymphocytes % 15 % (10-50); Monocytes % 2 % (2-9); Neutrophils % 83 % (42-76); Platelet Estimate Normal; RBC Morphology Normal; Total Cells Counted 100
--- NOTE | 2020-06-30 12:54 | HMH.PULMPN ---
Internal Medicine - PN: Subj *Date: 06/30/20 *Time: 12:54 Interval history: No acute respirations overnight. Patient responded appropriate to diuresis. Exam - Constitutional Constitutional:: Absent: no acute distress - HENMT Exam HENMT: Present: normocephalic, atraumatic - Respiratory Exam Comments: Patient in mild respiratory distress. Bilateral coarse breath sounds improved from yesterday. - Cardiovascular Exam Cardiac:: Present: S1, S2 - GI Exam GI:: Present: soft - Skin Exam Skin: Present: warm, no rash - Neurological Exam Neurological: Present: alert, awake, normal cognition - Extremities Exam Extremities: Present: no cyanosis, no clubbing, no edema Assessment and Plan (1) Acute respiratory failure due to COVID-19 Status: Acute Category: Medical Code(s): U07.1 - COVID-19; J96.00 - Acute respiratory failure, unspecified whether with hypoxia or hypercapnia (2) Class 1 obesity with body mass index (BMI) of 33.0 to 33.9 in adult Status: Acute Category: Medical Code(s): E66.9 - Obesity, unspecified; Z68.33 - Body mass index [BMI] 33.0-33.9, adult - Assessment and plan all Dx Assessment and Plan for all problems:: #Acute hypoxic respiratory failure: #COVID-19 pneumonia: 49-year-old no prior respiratory complaints presented with worsening respiratory failure and found to be COVID-19 positive and was admitted for further management. Patient has a CTA performed that was negative for PE however showed bilateral groundglass opacities. ABG from admission reviewed, showed hypoxic respiratory failure. Patient on admission was initiated on ceftriaxone azithromycin along with remdesivir and dexamethasone. Patient completed 5-day course of ceftriaxone azithromycin. Continued to receive remdesivir to complete total of 10 days and dexamethasone until discharge per Patient respiratory status slowly improving since admission, yesterday with only high flow nasal cannula 25 L 60%, this morning weaned to 6 L nasal cannula with saturations maintained around 92 to 94%. Patient responded well to diuresis yesterday. Pain: - Continue awake proning protocol, patient tolerating well - Lasix 40 mg IV once - Continue oxygen supplementation plan 6 L nasal inhaler, saturation goals of 88 to 92%. - Continue remdesivir x 10 days and dexamethasone - DuoNebs every 6 hours as needed along with every 12 scheduled #Thank you for involving pulmonary in this patient care. We will continue to follow.
--- NOTE | 2020-06-30 17:27 | PC.NURSE ---
Called office as patient requested to restart home melatonin. is supposed to be brining it in.
--- NOTE | 2020-06-30 19:28 | PC.NURSE ---
Patient is currently on 6L nc. Neuro is alert and oriented x 4. Patient has been doing well and is hopeful with his improvement. Will continue to monitor.
[2020-07-01] VITALS: BP 156/81; PULSE 60; PULSE 80; RESP 19; TEMP 36.7; O2SAT 94
--- NOTE | 2020-07-01 01:57 | PC.NURSE ---
0110 per crissy Johnson to remove nurse monitoring from patient
--- NOTE | 2020-07-01 03:42 | PC.NURSE ---
AxOx4, is on 6L NC with O2 sats 93-94%, respirations 19-20, lung sounds diminished, has been positioning prone, no complaints of SOA or chest pain
[2020-07-01 04:00] VITALS: BP 136/73; PULSE 74; RESP 19; TEMP 36.6; O2SAT 90
[2020-07-01 06:22] VITALS: PULSE 74; PULSE 77; O2SAT 90
[2020-07-01 06:36] LABS: Basophils % 0.2 % (0.1-2.0); Eosinophils # 0.1 K/mm3 (0.0-0.4); Eosinophils % 0.3 % (0.1-12.0); Hematocrit 41.5 % (42.0-52.0); Hemoglobin 13.3 g/dL (14.1-18.0); Lymphocytes # 1.5 K/mm3 (0.7-4.5); Lymphocytes % 9.9 % (10-50); Mean Corpuscular HGB Conc 32.1 g/dL (31.8-35.4); Mean Corpuscular Hemoglobin 29.1 pg (27.0-31.2); Mean Corpuscular Volume 90.6 fl (80-94); Mean Platelet Volume 7.5 fl (7.4-10.4); Monocytes # 0.9 K/mm3 (0.1-1.0); Monocytes % 5.7 % (1.7-9.3); Neutrophils # 12.9 K/mm3 (1.8-7.8); Neutrophils % 83.8 % (37.0-80.0); Platelet Count 270 K/mm3 (142-424); Red Blood Count 4.58 M/mm3 (4.60-6.20); Red Cell Distribution Width 12.6 % (11.5-17.5); White Blood Count 15.4 K/mm3 (4.8-10.8)
[2020-07-01 06:45] LABS: MANUAL DIFFERENTIAL MANUAL DIFFERENTIAL (MANUAL DIFF)
[2020-07-01 07:02] LABS: Alanine Aminotransferase 146 U/L (12-78); Albumin Level 3.6 g/dl (3.5-5.0); Albumin/Globulin Ratio 0.9 (1.1-1.8); Alkaline Phosphatase 93 U/L (38-126); Anion Gap 13.7 mEq/L (5-15); Aspartate Amino Transferase 45 U/L (17-59); Bilirubin,Total 0.6 mg/dl (0.2-1.3); Blood Urea Nitrogen 26 mg/dl (9-20); Calcium 9.4 mg/dl (8.4-10.2); Carbon Dioxide 27 mmol/L (22.0-30.0); Chloride 101 mmol/L (98-107); Creatinine Clearance Estimated 215 mL/min (50-200); Estimated Glomerular Filt Rate 104 ml/min (>60); GFR (African American) 125 ML/MIN (>60); Globulin 3.9 g/dL (1.3-3.2); Glucose 115 mg/dl (74-100); Potassium 4.7 mmoL/L (3.5-5.1); Sodium 137 mmol/L (136-145); Total Protein,Serum 7.5 g/dl (6.3-8.2)
[2020-07-01 07:59] VITALS: BP 152/93; PULSE 97; RESP 22; TEMP 36.8; O2SAT 93
[2020-07-01 08:48] LABS: Lymphocytes % 12 % (10-50); Monocytes % 4 % (2-9); Neutrophils % 84 % (42-76); Total Cells Counted 100
[2020-07-01 08:49] LABS: Platelet Estimate Normal; RBC Morphology Normal
--- NOTE | 2020-07-01 09:47 | XR_ITS ---
PROCEDURE: XR CHEST PORTABLE CLINICAL HISTORY: hypoxia Covid19 pneumonia COMPARISON: CT CT ANGIO CHEST from 06/22/2020 CR XR CHEST PORTABLE from 06/26/2020 CR XR CHEST PORTABLE from 06/27/2020 CR XR CHEST PORTABLE from 06/28/2020 FINDINGS: The cardiomediastinal silhouette and pulmonary vascularity are within normal limits. There is diffuse bilateral pneumonia in both upper and lower lobes with some sparing of the apices. The pneumonia is worse in the right upper lobe compared to the previous exam. No evidence of pneumothorax. No acute bony abnormalities. IMPRESSION: Diffuse bilateral pneumonia slightly worse in the right upper lobe Dictated by: Isma Dela Cruz MD 07/01/2020 16:26 Isma Dela Cruz MD in [facility] 07/01/2020 16:26
--- NOTE | 2020-07-01 11:52 | SW/DCPLANNER ---
Addendum entered by Melissa Willis 07/01/20 12:18: Keisha with [employer] has confirmed that order has been reviewed and oxygen/neb machine will be delivered to patient. Original Note: Patient information and order has been faxed to [facility] for 6L of O2 at home and portable tank. Dr Gardner/Jalil has also ordered a nebulizer machine for this patient. I will follow up with [facility] once patient information is reviewed. This patient will discharge home today.
--- NOTE | 2020-07-01 12:06 | HMH.DCSUM ---
General - General Admission date:: 06/22/20 Discharge date: 07/01/20 HPI HPI: 49 YOM states he started feeling bad last Monday and with a fever, SOA, cough, weakness. He tested positive for covid in the [facility] on 06/18 and has gotten porgressively worse in the past couple of days. This is a 49-year-old male presented to the emergency department with difficulty breathing. Patient was recently diagnosed with coronavirus a few days ago. Patient denies any medical problems. He states that he has been very rundown. He has had some cough, however nonproductive in nature. He has been taking Tylenol and scheduled, however he still endorses some fevers. The patient woke up today and had some difficulties breathing. Specially with exertion, he felt like he could not catch his breath. He denies any associated chest pain. No hemoptysis. Denies any headache or change in vision. No focal weakness. No abdominal pain or vomiting, no diarrhea (Per Dr. Coker). White blood cell count 10, H&H stable, CBC unremarkable. AST 145, ALT 140 06/22/2020 chest x-ray: FINDINGS: The cardiomediastinal silhouette and pulmonary vascularity are within normal limits. There is diffuse bilateral alveolar opacification consistent with diffuse bilateral pneumonia in both upper and lower lobes. No obvious effusions. No acute bony abnormalities. IMPRESSION: Extensive bilateral pneumonia Dictated by: Jose De Jesus, 06/22/20 Chest CTA: FINDINGS: HEART AND MEDIASTINAL STRUCTURES: No evidence of pulmonary embolus, aortic aneurysm, or aortic dissection.. There are enlarged mediastinal and bilateral hilar lymph nodes. LUNGS AND PLEURAL SPACES: Multifocal diffuse bilateral ground-glass infiltrates noted with some areas of consolidation in the lower lobes. These findings are consistent with Covid19 pneumonia. Nodular lesions may be obscured. No effusions. BONY STRUCTURES: Mild degenerative changes thoracic spine UPPER ABDOMEN: Fatty liver ADDITIONAL FINDINGS: No other significant abnormalities. IMPRESSION: 1. No evidence of pulmonary embolus, aortic aneurysm, or aortic dissection. 2. Multifocal diffuse areas of ground-glass attenuation in both upper and lower lobes with consolidation consistent with Covid19 pneumonia Dictated by: Jose De Jesus, Azithromycin, ceftriaxone, remdesivir, and dexamethasone IV all started in emergency department. Patient resting in bed with eyes closed no apparent distress noted. Awakens to verbal stimuli. Patient reports she is feeling better today than yesterday but still short of breath. Vapotherm at 40 L oxygen saturations 91%. Patient reports he has been up walking in his room and sitting in chair for all meals. Hospital Course Hospital Course: 49 YOM states he started feeling bad last Monday and with a fever, SOA, cough, weakness. He tested positive for covid in the [facility] on 06/18 and has gotten porgressively worse in the past couple of days. This is a 49-year-old male presented to the emergency department with difficulty breathing. Patient was recently diagnosed with coronavirus a few days ago. Patient denies any medical problems. He states that he has been very rundown. He has had some cough, however nonproductive in nature. He has been taking Tylenol and scheduled, however he still endorses some fevers. The patient woke up today and had some difficulties breathing. Specially with exertion, he felt like he could not catch his breath. He denies any associated chest pain. No hemoptysis. Denies any headache or change in vision. No focal weakness. No abdominal pain or vomiting, no diarrhea (Per Dr. Coker). White blood cell count 10, H&H stable, CBC unremarkable. AST 145, ALT 140 Azithromycin, ceftriaxone, remdesivir, and dexamethasone IV all started in emergency department. 06/22/2020 chest x-ray: FINDINGS: The cardiomediastinal silhouette and pulmonary vascularity are within normal limits. There i
--- NOTE | 2020-07-01 12:29 | P.PN_ITS ---
Internal Medicine - PN: Subj *Date: 07/01/20 *Time: 12:29 Interval history: No acute respiratory events overnight. Patient respiratory status improved Exam - Constitutional Constitutional:: Present: no acute distress, cooperative - HENMT Exam HENMT: Present: normocephalic, atraumatic - Eye Exam Eyes:: Present: normal appearance both eyes and related structures - Neck Exam Neck:: Present: normal visual inspection - Respiratory Exam Respiratory:: Present: able to speak in complete sentences, no respiratory distress, normal respiratory effort, crackles - Cardiovascular Exam Cardiac:: Present: S1, S2 - Neurological Exam Neurological: Present: alert, awake, normal cognition - Extremities Exam Extremities: Present: no cyanosis, no clubbing, no edema Assessment and Plan (1) Acute respiratory failure due to COVID-19 Status: Acute Category: Medical Code(s): U07.1 - COVID-19; J96.00 - Acute respiratory failure, unspecified whether with hypoxia or hypercapnia (2) Class 1 obesity with body mass index (BMI) of 33.0 to 33.9 in adult Status: Acute Category: Medical Code(s): E66.9 - Obesity, unspecified; Z68.33 - Body mass index [BMI] 33.0-33.9, adult - Assessment and plan all Dx Assessment and Plan for all problems:: #Acute hypoxic respiratory failure: #COVID-19 pneumonia: 49-year-old no prior respiratory complaints presented with worsening respiratory failure and found to be COVID-19 positive and was admitted on 06/22/20 for further management. Patient has a CTA performed that was negative for PE h owever showed bilateral groundglass opacities. ABG from admission reviewed, showed hypoxic respiratory failure. Patient on admission was initiated on ceftriaxone azithromycin along with remdesivir and dexamethasone. Patient completed 5-day course of ceftriaxone azithromycin. Patient respiratory status slowly improving since admission, initially needing HFNC 100% FiO2 - eventually weaned to 6 L nasal cannula, saturating 94% this morning. Patient appears comfortable, not in any respiratory distress. Bilateral coarse breath sounds, significantly improved from admission, slightly improved from yesterday Patient so far received 9 days of remdesivir and dexamethasone. Patient will be discharged today with home oxygen set up to maintain O2 saturation goal of 88 to 92% on albuterol as needed, Pain: - Continue awake proning protocol, patient tolerating well - Continue oxygen supplementation plan 6 L nasal inhaler, saturation goals of 88 to 92%. - Continue remdesivir and dexamethasone until discharge (day 9) - DuoNebs every 6 hours as needed along with every 12 scheduled, add albuterol every 6 hours as needed on discharge #Thank you for involving pulmonary in this patient care. We will follow the patient in the pulmonary clinic in 4 weeks with a full PFTs and 6-minute walk testing
[2020-07-01 12:40] VITALS: BP 141/79; PULSE 116; RESP 17; TEMP 36.7; O2SAT 96
== END 2020-07-01 13:38 | disposition home or self-care (01) | DRG 177 ==
LOC: ER 15:01 → ICU 20:23 → 2ND 06-27 15:46
PROVIDERS: Nurse Practitioner Family; Admitting Provider Family Medicine; Emergency Provider Emergency Medicine; Visit Provider Family Medicine
DX: U07.1 COVID-19 (principal); J12.82 Pneumonia due to coronavirus disease 2019; J96.01 Acute respiratory failure with hypoxia
CPT/HCPCS: 36415; 71045; 71046; 71275; 80053; 82803; 83605; 84484; 85007; 85025; 85610; 85730; 87040; 87070; 87205; 94640; 94760; 94761; 96365; 96375; 99284; Q9967

== ENCOUNTER → 2020-07-16 14:51 | Outpatient (CLI) | payer BC, SELFPAY ==
--- NOTE | 2020-07-16 14:58 | CA_ITS ---
APPROVED REPORT EXAM: Comprehensive 2D, Doppler, and color-flow Echocardiogram Education Director: Josefina Silver RVT Ht: 6 ft 7 in Wt: 294lbs BSA: 2.68 BP: 144/88 mmHg Indications: SOA,HOME O2,ABN EKG,POST COVID 2D Dimensions LVOT 2.65 cm (M/F) 1.5-2.5 LA Volume 29.80 mL LA Volume Index 11.11 mL/m2 (M/F) 16-34 M-Mode Dimensions RVDd 2.96 cm (0.9-2.6) LA Diam 4.07 cm (1.9-4.0) LVDd 4.21 cm (3.5-5.7) Ao Diam 3.25 cm (2.0-3.7) LVDs 2.92 cm (3.5-5.7) IVSd 1.86 cm (0.6-1.1) PWd 1.10 cm (0.6-1.1) EF (Teich) 58.50% FS 30.60% EDV (Teich) 79.00 mL TAPSE 1.12 (<1.7) ESV (Teich) 32.80 mL LV Diastology E Decel Time 160.00 (160-240 msec) E/A Ratio 0.9 MED E' 4.00 (< 7 cm/sec) E'/MED E' Ratio 15.52 (>14) LAT E' 12.80 (<10 cm/sec) E/LAT E' Ratio 4.85 (>14) Aortic Valve AO Peak GR. 5.00 mmHg Mitral Valve MV E Max [place]. 62.00 (40-130 cm/s) MV A Velocity 72.00 (40-130 cm/s) E/A Ratio 0.86 MV Decel. Time 160.00 (160-240 ms) MV PHT 47.00 ms Pulmonary Valve PV Peak Velocity 108.00 (50-150 cm/s) Tricuspid Valve TR P. Velocity 219.00 cm/s RAP Estimate 10.00 mmHg RVSP 29.20 mmHg Left Ventricle Left atrium is mildly enlarged, left ventricle is normal size, mild concentric left ventricular hypertrophy, visually estimated ejection fraction 55% with no regional wall motion abnormality, grade 1 diastolic dysfunction seen without tissue Doppler evidence of raise left atrial pressure. Right Ventricle Right atrium and right ventricle mildly enlarged with normal contractility. Aortic Valve Aortic valve is grossly normal, there is no aortic stenosis or aortic insufficiency. Mitral Valve Mitral valve is grossly normal, there is trace mitral regurgitation. Tricuspid Valve Tricuspid valve grossly normal, there is trace tricuspid regurgitation, tricuspid regurgitation jet velocity is inadequate for calculation of the right ventricular systolic pressure. Pulmonic Valve Pulmonic valve is poorly visualized. Great Vessels Aortic root is normal size. Pericardium No significant pericardial effusion noted. Conclusion 1. Mild biatrial enlargement, normal left ventricular size, mild concentric left ventricular hypertrophy, visually estimated ejection fraction 55% with no regional wall motion abnormality, grade 1 diastolic dysfunction seen without tissue Doppler evidence of raise left atrial pressure. 2. Trace mitral and tricuspid regurgitation. 3. Mildly enlarged right ventricle with normal contractility. 4. No significant pericardial effusion noted. Electronically signed by : Jama Ribeiro, 07/17/2020 12:23:57
== END ==
PROVIDERS: PCP Nurse Practitioner Family; Visit Provider Nurse Practitioner Family
DX: R06.00 Dyspnea, unspecified (principal); R94.31 Abnormal electrocardiogram [ECG] [EKG]
CPT/HCPCS: 93306

== ENCOUNTER → 2020-07-24 13:36 | Outpatient (CLI) | payer BC, SELFPAY ==
[2020-07-24 14:17] LABS: Chloride 103 mmol/L (98-107); Sodium 140 mmol/L (136-145)
[2020-07-24 14:18] LABS: Potassium 4.4 mmoL/L (3.5-5.1)
[2020-07-24 14:20] LABS: Blood Urea Nitrogen 14 mg/dl (9-20); Carbon Dioxide 31 mmol/L (22.0-30.0); Estimated Glomerular Filt Rate 80 ml/min (>60); GFR (African American) 97 ML/MIN (>60)
[2020-07-24 14:21] LABS: Glucose 125 mg/dl (74-100)
[2020-07-24 14:24] LABS: Anion Gap 10.4 mEq/L (5-15)
[2020-07-24 14:31] LABS: NT Pro Brain Natriuretic Pep. 47.2 pg/mL (0-125)
== END ==
PROVIDERS: Visit Provider Internal Medicine Cardiovascular Disease
DX: U07.1 COVID-19 (principal); R00.0 Tachycardia, unspecified; R94.31 Abnormal electrocardiogram [ECG] [EKG]; I10 Essential (primary) hypertension
CPT/HCPCS: 36415; 80048; 83880

== ENCOUNTER → 2020-07-31 14:14 | Outpatient (CLI) | payer BC, SELFPAY ==
--- NOTE | 2020-07-31 15:15 | PC.NURSE ---
PFT and 6 Minute walk completed on pt. Albuterol 0.083% given to patient via HHN per written protocol, Pt tolerated tx well.
== END ==
PROVIDERS: PCP Nurse Practitioner Family; Visit Provider Internal Medicine Pulmonary Disease
DX: U07.1 COVID-19 (principal); J96.00 Acute respiratory failure, unspecified whether with hypoxia or hypercapnia
CPT/HCPCS: 94060; 94618; 94726; 94729

== ENCOUNTER → 2020-08-05 11:21 | Outpatient (CLI) | payer BC, SELFPAY ==
[2020-08-05 12:22] LABS: Basophils % 0.3 % (0.1-2.0); Eosinophils # 0.1 K/mm3 (0.0-0.4); Eosinophils % 1.3 % (0.1-12.0); Hematocrit 44.4 % (42.0-52.0); Hemoglobin 14.5 g/dL (14.1-18.0); Lymphocytes % 22.1 % (10-50); Mean Corpuscular HGB Conc 32.6 g/dL (31.8-35.4); Mean Corpuscular Hemoglobin 29.9 pg (27.0-31.2); Mean Corpuscular Volume 91.9 fl (80-94); Mean Platelet Volume 8.1 fl (7.4-10.4); Monocytes # 0.5 K/mm3 (0.1-1.0); Monocytes % 5.2 % (1.7-9.3); Neutrophils # 6.5 K/mm3 (1.8-7.8); Neutrophils % 71.1 % (37.0-80.0); Platelet Count 282 K/mm3 (142-424); Red Blood Count 4.83 M/mm3 (4.60-6.20); Red Cell Distribution Width 13.9 % (11.5-17.5); White Blood Count 9.2 K/mm3 (4.8-10.8)
[2020-08-05 12:57] LABS: Erythrocyte Sedimentation Rate 23 mm/hr (0-15)
[2020-08-05 13:39] LABS: Uric Acid 8.4 mg/dl (3.5-8.5)
[2020-08-05 13:43] LABS: C-Reactive Protein 0.7 mg/L (0-4)
[2020-08-05 14:44] LABS: Coronavirus 19 IgG Antibody Positive (Negative); Coronavirus 19 IgM Antibody Negative (Negative)
[2020-08-06 18:08] LABS: Cytoplasmic (C-ANCA) <1:20 titer (Neg:<1:20)
[2020-08-07 05:27] LABS: Perinuclear (P-ANCA) <1:20 titer (Neg:<1:20)
[2020-08-08 08:23] LABS: Anti-Cyclic Citrullinated Pept 7 units (0-19)
[2020-08-08 13:10] LABS: Antinuclear Antibodies, IFA Positive (.)
[2020-08-08 22:39] LABS: Antinuclear Antibodies (ANA) NEGATIVE
== END ==
PROVIDERS: Visit Provider Internal Medicine Pulmonary Disease
DX: R06.00 Dyspnea, unspecified (principal); J84.9 Interstitial pulmonary disease, unspecified; J45.909 Unspecified asthma, uncomplicated; J98.4 Other disorders of lung; Z86.16 Personal history of COVID-19
CPT/HCPCS: 36415; 84550; 85025; 85651; 86038; 86140; 86200; 86225; 86235; 86256; 86328; 86431

== ENCOUNTER → 2020-08-12 07:44 | Outpatient (CLI) | payer BC, SELFPAY ==
--- NOTE | 2020-08-12 07:44 | CT_ITS ---
PROCEDURE: CT CHEST WO CON CLINICAL INDICATION: ILD Post COVID pneumonia soa COMPARISON: CT CT ANGIO CHEST from 06/22/2020 TECHNIQUE: Axial images obtained with sagittal and coronal reformats. All CT scans at the facility use one or more dose reduction, viz: automated exposure control, ma/kV adjustment per patient size (including targeted exams where dose is matched to indication, i.e. head), or iterative reconstruction technique. FINDINGS: There are mildly prominent mediastinal lymph nodes once again noted. These are slightly smaller than when compared to the previous exam. Hilar adenopathy is also small shown some improvement. Coronary artery calcifications are present. The the previously noted multifocal ground-glass infiltrates have shown improvement. There is now patchy diffuse bilateral somewhat irregular linear opacities which has the appearance of mild diffuse atelectasis.. This however shows only mild improvement with prone imaging. The interlobular septa do not appear thickened. No effusions are evident. There is a parenchymal opacity in the right middle lobe which measures approximately 2 cm and is felt to represent an area of scarring. There are degenerative changes in the thoracic spine. IMPRESSION: Overall, the findings are consistent with diffuse postinflammatory fibrotic changes in both upper and lower lobes with predominance in the lower lobes. The mediastinal and hilar adenopathy has shown some improvement Dictated by: Isma Dela Cruz MD 08/13/2020 13:16 Isma Dela Cruz MD in [place] 08/13/2020 13:16
== END ==
PROVIDERS: PCP Nurse Practitioner Family; Visit Provider Internal Medicine Pulmonary Disease
DX: R06.00 Dyspnea, unspecified (principal)
CPT/HCPCS: 71250

== ENCOUNTER → 2020-08-26 08:43 | Outpatient (CLI) | payer BC, SELFPAY ==
[2020-08-27 17:03] LABS: Antiribosomal P Antibodies <0.2 AI (0.0-0.9); Antiscleroderma-70 Antibodies <0.2 AI (0.0-0.9); RNP Antibodies 0.2 AI (0.0-0.9); Sjogren's Anti-SS-A <0.2 AI (0.0-0.9); Sjogren's Anti-SS-B <0.2 AI (0.0-0.9)
[2020-08-28 14:00] LABS: Actin (Smooth Muscle) Antibody 3 Units (0-19); Anti-Centromere B Antibodies <0.2 AI (0.0-0.9); Anti-DNA (DS) Ab Qn 1 IU/mL (0-9)
[2020-08-30 19:54] LABS: Myeloperoxidase Antibody <9.0 U/mL (0.0-9.0)
[2020-09-01 02:14] LABS: Antiproteinase 3 (PR-3) Abs <3.5 U/mL (0.0-3.5)
== END ==
PROVIDERS: Visit Provider Internal Medicine Pulmonary Disease
DX: J84.9 Interstitial pulmonary disease, unspecified (principal); J84.10 Pulmonary fibrosis, unspecified
CPT/HCPCS: 83516; 83520; 86225; 86235; 86255

== ENCOUNTER → 2020-09-14 12:45 | Outpatient (CLI) | payer BC, SELFPAY ==
[2020-09-14 13:40] VITALS: PULSE 95; PULSE 99
== END ==
PROVIDERS: PCP Nurse Practitioner Family; Visit Provider Internal Medicine Pulmonary Disease
DX: R06.09 Other forms of dyspnea (principal); Z86.16 Personal history of COVID-19
CPT/HCPCS: 94060; 94618; 94640; 94726; 94729

== ENCOUNTER → 2021-01-01 14:52 | Outpatient (CLI) | payer BC, SELFPAY | PROVIDERS: PCP Nurse Practitioner Family; Visit Provider Internal Medicine Pulmonary Disease | DX: R06.09 Other forms of dyspnea (principal); Z86.16 Personal history of COVID-19; R94.31 Abnormal electrocardiogram [ECG] [EKG]; I10 Essential (primary) hypertension | CPT/HCPCS: 94060; 94726; 94729 ==

== ENCOUNTER → 2021-06-11 09:45 | Outpatient (CLI) | payer BC, SELFPAY | PROVIDERS: PCP Nurse Practitioner Family; Visit Provider Internal Medicine Pulmonary Disease | DX: R06.09 Other forms of dyspnea (principal) | CPT/HCPCS: 94060; 94726; 94729 ==

== ENCOUNTER → 2021-06-16 12:58 | Outpatient (CLI) | payer BC, SELFPAY | PROVIDERS: Visit Provider Nurse Practitioner | DX: Z20.822 Contact with and (suspected) exposure to COVID-19 (principal) | CPT/HCPCS: C9803; U0003; U0005 ==

== ENCOUNTER → 2021-07-21 15:43 | Outpatient (CLI) | payer BC, SELFPAY | PROVIDERS: PCP Nurse Practitioner Family; Visit Provider Internal Medicine Pulmonary Disease | DX: R06.02 Shortness of breath (principal) | CPT/HCPCS: 94762 ==

== ENCOUNTER → 2022-07-18 07:46 | Outpatient (CLI) | payer BC, SELFPAY ==
[2022-07-18 08:30] VITALS: PULSE 64; PULSE 68
== END ==
PROVIDERS: PCP Nurse Practitioner Family; Visit Provider Internal Medicine Pulmonary Disease
DX: R06.00 Dyspnea, unspecified (principal)
CPT/HCPCS: 94060; 94618; 94640; 94727; 94729

== ENCOUNTER → 2022-08-22 10:14 | Outpatient (CLI) | payer BC, SELFPAY ==
[2022-08-22 10:36] LABS: Basophils % 0.4 % (0.1-2.0); Eosinophils # 0.2 K/mm3 (0.0-0.4); Eosinophils % 2.5 % (0.1-12.0); Hematocrit 39.1 % (42.0-52.0); Hemoglobin 12.9 g/dL (14.1-18.0); Lymphocytes # 2.4 K/mm3 (0.7-4.5); Lymphocytes % 32.2 % (10-50); Mean Corpuscular HGB Conc 32.9 g/dL (31.8-35.4); Mean Corpuscular Hemoglobin 30.6 pg (27.0-31.2); Mean Platelet Volume 8.4 fl (7.4-10.4); Monocytes # 0.4 K/mm3 (0.1-1.0); Monocytes % 5.5 % (1.7-9.3); Neutrophils # 4.4 K/mm3 (1.8-7.8); Neutrophils % 59.4 % (37.0-80.0); Platelet Count 236 K/mm3 (142-424); Red Blood Count 4.21 M/mm3 (4.60-6.20); White Blood Count 7.4 K/mm3 (4.8-10.8)
[2022-08-22 11:00] LABS: Alanine Aminotransferase 38 U/L (12-78); Albumin Level 4.9 g/dl (3.5-5.0); Alkaline Phosphatase 66 U/L (38-126); Aspartate Amino Transferase 37 U/L (17-59); Bilirubin,Direct 0.3 mg/dl (0.0-0.4); Bilirubin,Indirect 0.4 mg/dL (0.0-0.9); Bilirubin,Total 0.7 mg/dl (0.2-1.3); Bilirubin,Unconjugated 0.4 mg/dL (0.0-1.1); Blood Urea Nitrogen 21 mg/dl (9-20); Calcium 9.1 mg/dl (8.4-10.2); Carbon Dioxide 27 mmol/L (22.0-30.0); Chloride 103 mmol/L (98-107); Chol/HDL Ratio 8.1 (1-3.5); Cholesterol 259 mg/dl (140-200); Estimated Glomerular Filt Rate 59 ml/min (>60); GFR (African American) 71 ML/MIN (>60); Glucose 92 mg/dl (74-100); HDL Cholesterol 32 mg/dl (40-60); Magnesium 1.8 mg/dl (1.6-2.3); Sodium 137 mmol/L (136-145); Total Protein,Serum 7.7 g/dl (6.3-8.2); Triglycerides 242 mg/dl (30-150); VLDL Cholesterol 48 mg/dL (0-40)
[2022-08-22 11:10] LABS: Direct LDL Cholesterol 159.91 mg/dL (100-129)
[2022-08-22 11:15] LABS: Free T4 (Free Thyroxine) 0.84 ng/dl (0.78-2.19)
[2022-08-22 11:30] LABS: Thyroid Stimulating Hormone 1.27 uIU/mL (0.465-4.68)
== END ==
PROVIDERS: PCP Nurse Practitioner Family; Visit Provider Internal Medicine Cardiovascular Disease
DX: I10 Essential (primary) hypertension (principal)
CPT/HCPCS: 36415; 80048; 80061; 80076; 83735; 84439; 84443; 85025

== ENCOUNTER 2022-08-27 01:37 | Emergency (ER) | payer OTHER, BC, SELFPAY ==
[2022-08-27 01:39] VITALS: BP 151/86; PULSE 77; RESP 18; TEMP 36.8; O2SAT 99; BMI 32.9
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
[2022-08-27 03:14] VITALS: BP 145/85; PULSE 78; RESP 18; TEMP 36.6; O2SAT 99
== END 2022-08-27 03:15 | disposition home or self-care (01) ==
PROVIDERS: Emergency Provider Emergency Medicine
DX: S02.2XXA Fracture of nasal bones, initial encounter for closed fracture (principal); Y04.0XXA Assault by unarmed brawl or fight, initial encounter
CPT/HCPCS: 70160; 90715; 96372; 99283; 99284

== ENCOUNTER → 2022-09-22 10:37 | Outpatient (CLI) | payer BC, SELFPAY ==
[2022-09-22 11:51] LABS: Alanine Aminotransferase 47 U/L (12-78); Albumin Level 4.8 g/dl (3.5-5.0); Alkaline Phosphatase 62 U/L (38-126); Anion Gap 15.3 mEq/L (5-15); Aspartate Amino Transferase 43 U/L (17-59); Bilirubin,Indirect 0.6 mg/dL (0.0-0.9); Bilirubin,Total 0.6 mg/dl (0.2-1.3); Bilirubin,Unconjugated 0.7 mg/dL (0.0-1.1); Blood Urea Nitrogen 25 mg/dl (9-20); Calcium 9.3 mg/dl (8.4-10.2); Carbon Dioxide 26 mmol/L (22.0-30.0); Chloride 103 mmol/L (98-107); Chol/HDL Ratio 3.9 (1-3.5); Cholesterol 164 mg/dl (140-200); Estimated Glomerular Filt Rate 54 ml/min (>60); GFR (African American) 65 ML/MIN (>60); Glucose 90 mg/dl (74-100); HDL Cholesterol 42 mg/dl (40-60); Potassium 4.3 mmoL/L (3.5-5.1); Sodium 140 mmol/L (136-145); Triglycerides 123 mg/dl (30-150); VLDL Cholesterol 25 mg/dL (0-40)
[2022-09-22 12:02] LABS: Direct LDL Cholesterol 84.61 mg/dL (100-129)
== END ==
PROVIDERS: PCP Nurse Practitioner Family; Visit Provider Nurse Practitioner
DX: E78.5 Hyperlipidemia, unspecified (principal); I10 Essential (primary) hypertension
CPT/HCPCS: 36415; 80048; 80061; 80076

== ENCOUNTER → 2023-03-22 12:51 | Outpatient (CLI) | payer BC, SELFPAY ==
--- NOTE | 2023-03-22 | CA_ITS ---
APPROVED REPORT EXAM: Comprehensive 2D, Doppler, and color-flow Echocardiogram Environmental Monitoring Technician: Alka May CRT Ht: 6 ft 6 in Wt: 290lbs BSA: 2.64 BP: 134/82 mmHg Indications: Shortness of Breath, Hyperlipidemia, Hypertension/HDD, restrictive lung disease 2D Dimensions LVOT 1.93 cm (M/F) 1.5-2.5 LA Volume 70.10 mL LA Volume Index 25.90 mL/m2 (M/F) 16-34 M-Mode Dimensions RVDd 3.17 cm (0.9-2.6) LA Diam 3.58 cm (1.9-4.0) LVDd 5.43 cm (3.5-5.7) Ao Diam 4.09 cm (2.0-3.7) LVDs 3.59 cm (3.5-5.7) IVSd 1.69 cm (0.6-1.1) PWd 0.97 cm (0.6-1.1) EF (Teich) 62.20% FS 33.90% EDV (Teich) 143.10 mL TAPSE 2.29 (<1.7) ESV (Teich) 54.10 mL LV Diastology E Decel Time 233.00 (160-240 msec) E/A Ratio 1.43 MED E' 5.60 (< 7 cm/sec) MED A' 11.50 cm/s E'/MED E' Ratio 13.34 (>14) LAT E' 12.00 (<10 cm/sec) LAT A' 13.80 cm/s E/LAT E' Ratio 6.23 (>14) Aortic Valve AO Peak GR. 7.20 mmHg Mitral Valve MV A Velocity 52.00 (40-130 cm/s) E/A Ratio 1.43 MV Decel. Time 233.00 (160-240 ms) Pulmonary Valve PV Peak Velocity 186.00 (50-150 cm/s) Tricuspid Valve TR P. Velocity 219.00 cm/s RAP Estimate 10.00 mmHg RVSP 29.30 mmHg Left Ventricle The left ventricle is normal size. The left ventricular systolic function is normal. The left ventricular ejection fraction is within the normal range. There is increased LV wall thickness. There is normal LV segmental wall motion. The left ventricular diastolic function is normal. LVEF is 55%. Right Ventricle Right ventricle is mildly to moderately dilated. The right ventricular systolic function is normal. Atria The left atrium size is normal. The right atrium size is normal. Aortic Valve The aortic valve is normal in structure. The aortic valve is trileaflet. There is no aortic valvular stenosis. No aortic regurgitation is present. Mitral Valve The mitral valve is normal in structure. No evidence of mitral valve stenosis. There is no mitral valve regurgitation noted. Tricuspid Valve The tricuspid valve leaflets are thin and pliable. Trace tricuspid regurgitation. RVSP is 15 mmHg + RA pressure. Pulmonic Valve The pulmonary valve is normal in structure. Trace pulmonic regurgitation. Great Vessels The aortic root is normal in size. The ascending aorta is normal in size. IVC is normal is not well visualized. Pericardium There is no pericardial effusion. Other Information Study Quality: Fair Conclusion Normal biventricular systolic function. Mild to moderate RV dilation. No significant valvular stenosis or regurgitation. Electronically signed by : Traci Rubio MD 03/25/2023 13:53:08
== END ==
PROVIDERS: PCP Nurse Practitioner Family; Visit Provider Nurse Practitioner Family
DX: R06.09 Other forms of dyspnea (principal); R94.31 Abnormal electrocardiogram [ECG] [EKG]
CPT/HCPCS: 93306

== ENCOUNTER 2023-08-23 09:29 | Outpatient (CLI) | payer BC, SELFPAY ==
[2023-08-23 10:26] LABS: Basophils % 0.5 % (0.1-2.0); Eosinophils # 0.1 K/mm3 (0.0-0.4); Eosinophils % 2.3 % (0.1-12.0); Hematocrit 39.9 % (42.0-52.0); Hemoglobin 13.3 g/dL (14.1-18.0); Lymphocytes # 2.1 K/mm3 (0.7-4.5); Lymphocytes % 33.7 % (10-50); Mean Corpuscular HGB Conc 33.3 g/dL (31.8-35.4); Mean Corpuscular Hemoglobin 31.3 pg (27.0-31.2); Mean Platelet Volume 9.2 fl (7.4-10.4); Monocytes # 0.3 K/mm3 (0.1-1.0); Monocytes % 4.7 % (1.7-9.3); Neutrophils # 3.6 K/mm3 (1.8-7.8); Neutrophils % 58.7 % (37.0-80.0); Platelet Count 189 K/mm3 (142-424); Red Blood Count 4.24 M/mm3 (4.60-6.20); Red Cell Distribution Width 13.4 % (11.5-17.5); White Blood Count 6.1 K/mm3 (4.8-10.8)
[2023-08-23 12:50] LABS: Chloride 106 mmol/L (98-107); Sodium 139 mmol/L (136-145)
[2023-08-23 12:51] LABS: Potassium 4.3 mmoL/L (3.5-5.1)
[2023-08-23 12:53] LABS: Alanine Aminotransferase 40 U/L (12-78); Albumin Level 4.7 g/dl (3.5-5.0); Alkaline Phosphatase 60 U/L (38-126); Anion Gap 11.3 mEq/L (5-15); Aspartate Amino Transferase 41 U/L (17-59); Bilirubin,Direct 0.2 mg/dl (0.0-0.4); Bilirubin,Indirect 0.3 mg/dL (0.0-0.9); Bilirubin,Total 0.5 mg/dl (0.2-1.3); Bilirubin,Unconjugated 0.3 mg/dL (0.0-1.1); Blood Urea Nitrogen 25 mg/dl (9-20); Calcium 9.5 mg/dl (8.4-10.2); Carbon Dioxide 26 mmol/L (22.0-30.0); Cholesterol 169 mg/dl (140-200); Estimated Glomerular Filt Rate 50 ml/min (>60); GFR (African American) 60 ML/MIN (>60); Glucose 105 mg/dl (74-100); Magnesium 1.8 mg/dl (1.6-2.3); Total Protein,Serum 7.3 g/dl (6.3-8.2); Triglycerides 148 mg/dl (30-150); VLDL Cholesterol 30 mg/dL (0-40)
[2023-08-23 12:54] LABS: Chol/HDL Ratio 4.7 (1-3.5); HDL Cholesterol 36 mg/dl (40-60)
[2023-08-23 13:01] LABS: Free T4 (Free Thyroxine) 0.96 ng/dl (0.78-2.19)
[2023-08-23 13:17] LABS: Direct LDL Cholesterol 87.99 mg/dL (100-129)
[2023-08-23 13:25] LABS: Thyroid Stimulating Hormone 1.74 uIU/mL (0.465-4.68)
== END 2023-08-23 23:59 ==
LOC: LAB 09:29
PROVIDERS: PCP Nurse Practitioner Family; Visit Provider Nurse Practitioner
DX: E78.5 Hyperlipidemia, unspecified (principal); I10 Essential (primary) hypertension; R94.31 Abnormal electrocardiogram [ECG] [EKG]
CPT/HCPCS: 36415; 80048; 80061; 80076; 83735; 84439; 84443; 85025

== ENCOUNTER 2024-08-22 09:24 | Outpatient (CLI) | payer BC, SELFPAY ==
[2024-08-22 09:57] LABS: Basophils % 0.3 % (0.1-2.0); Eosinophils # 0.2 K/mm3 (0.0-0.4); Eosinophils % 2.7 % (0.1-12.0); Hematocrit 39.8 % (42.0-52.0); Hemoglobin 13.6 g/dL (14.1-18.0); Lymphocytes # 3.2 K/mm3 (0.7-4.5); Lymphocytes % 40.1 % (10-50); Mean Corpuscular HGB Conc 34.2 g/dL (31.8-35.4); Mean Corpuscular Hemoglobin 30.8 pg (27.0-31.2); Mean Corpuscular Volume 90.2 fl (80-94); Monocytes # 0.7 K/mm3 (0.1-1.0); Monocytes % 8.6 % (1.7-9.3); Neutrophils # 3.8 K/mm3 (1.8-7.8); Platelet Count 205 K/mm3 (142-424); Red Blood Count 4.41 M/mm3 (4.60-6.20); Red Cell Distribution Width 12.2 % (11.5-17.5); White Blood Count 7.9 K/mm3 (4.8-10.8)
[2024-08-22 10:31] LABS: Alanine Aminotransferase 35 U/L (12-78); Albumin Level 5.2 g/dl (3.5-5.0); Alkaline Phosphatase 49 U/L (38-126); Anion Gap 14.3 mEq/L (5-15); Aspartate Amino Transferase 39 U/L (17-59); Bilirubin,Direct 0.1 mg/dl (0.0-0.4); Bilirubin,Indirect 0.5 mg/dL (0.0-0.9); Bilirubin,Total 0.6 mg/dl (0.2-1.3); Bilirubin,Unconjugated 0.5 mg/dL (0.0-1.1); Blood Urea Nitrogen 30 mg/dl (9-20); Calcium 9.6 mg/dl (8.4-10.2); Carbon Dioxide 27 mmol/L (22.0-30.0); Chloride 103 mmol/L (98-107); Chol/HDL Ratio 4.3 (1-3.5); Cholesterol 169 mg/dl (140-200); Estimated Glomerular Filt Rate 43 ml/min (>60); GFR (African American) 52 ML/MIN (>60); Glucose 97 mg/dl (74-100); HDL Cholesterol 39 mg/dl (40-60); Magnesium 1.8 mg/dl (1.6-2.3); Potassium 4.3 mmoL/L (3.5-5.1); Sodium 140 mmol/L (136-145); Total Protein,Serum 7.9 g/dl (6.3-8.2); Triglycerides 210 mg/dl (30-150); VLDL Cholesterol 42 mg/dL (0-40)
[2024-08-22 10:42] LABS: Direct LDL Cholesterol 75.85 mg/dL (100-129)
[2024-08-22 10:46] LABS: Free T4 (Free Thyroxine) 0.99 ng/dl (0.78-2.19)
== END 2024-08-22 23:59 | disposition home or self-care (01) ==
LOC: LAB 09:26
PROVIDERS: PCP Nurse Practitioner Family; Visit Provider Nurse Practitioner
DX: I10 Essential (primary) hypertension (principal); E78.49 Other hyperlipidemia; R76.8 Other specified abnormal immunological findings in serum
CPT/HCPCS: 36415; 80048; 80061; 80076; 83735; 84439; 84443; 85025

== ENCOUNTER 2024-09-05 10:18 | Outpatient (CLI) | payer BC, SELFPAY ==
[2024-09-05 11:08] LABS: Chloride 104 mmol/L (98-107); Potassium 4.9 mmoL/L (3.5-5.1); Sodium 140 mmol/L (136-145)
[2024-09-05 11:11] LABS: Anion Gap 14.9 mEq/L (5-15); Blood Urea Nitrogen 22 mg/dl (9-20); Calcium 10.3 mg/dl (8.4-10.2); Carbon Dioxide 26 mmol/L (22.0-30.0); Estimated Glomerular Filt Rate 49 ml/min (>60); GFR (African American) 60 ML/MIN (>60); Glucose 102 mg/dl (74-100)
== END 2024-09-05 23:59 | disposition home or self-care (01) ==
LOC: LAB 10:19
PROVIDERS: PCP Nurse Practitioner Family; Visit Provider Nurse Practitioner
DX: E78.49 Other hyperlipidemia (principal); N18.9 Chronic kidney disease, unspecified
CPT/HCPCS: 36415; 80048